=== PATIENT | female | born 1955 | race African-American/Black ===

== ENCOUNTER 2018-03-19 08:39 | Inpatient (IN) | payer OTHER ==
[2018-03-19] VITALS (8 sets, daily range): BP systolic 160–185; BP diastolic 70–87; PULSE 89–108; RESP 18–20; Ht 167.6 cm; Wt 101.0 kg
[~2018-03-19] VITALS: Ht 167.6 cm; Wt 101.0 kg
[~2018-03-19 08:39] MED LIST: BENA20TA4 PO; IBUP-1982 PO; MTF1000T PO; REGULAR INSULIN SC
[2018-03-19] MEDS ORDERED: HYDROCODONE/APAP (5/325) TAB PO ONE (09:30)
--- NOTE | 2018-03-19 10:44 | ERD ---
ER Documentation Chief Complaint Chief Complaint s/p [facility] fall has left arm pain HPI Patient is a 62-year-old female with past medical history of hypertension, hyperlipidemia, Type DM II presents to the ER for concerns of left arm pain times 1 day. Patient states she tripped yesterday at home near her fireplace. Patient denies any dizziness or lightheadedness prior to fall injury Patient reports falling onto her left shoulder pain. Patient denies any headache or head injuries. Patient denies any chest pain or shortness of breath.. T states she is unable to bend her left arm secondary to pain. Patient has normal range of m otion of all digits. Patient is left-hand dominant. Patient denies any fractures or dislocations in the past. ROS All systems reviewed and are negative except as per history of present illness. Medications Home Meds Reported Medications Aspirin* (Aspirin* EC) 81 Mg Tablet.dr, 81 MG PO DAILY, TAB 03/19/18 Insulin Glargine,Hum.rec.anlog (Basaglar Kwikpen U-100) 100 Unit/1 Ml Insuln.pen, 15 UNIT SC QAM, EA 03/19/18 Metformin* (Glucophage*) 1,000 Mg Tablet, 1000 MG PO BID, #60 TAB 03/19/18 Benazepril Hcl* (Benazepril Hcl*) 20 Mg Tablet, 20 MG PO BID, TAB 11/06/13 Discontinued Reported Medications [Regular Insulin] No Conflict Check, SC AC MEALS 11/06/13 Metformin* (Glucophage*) 1,000 Mg Tablet, 1000 MG PO BID, TAB 11/06/13 Ibuprofen* (Ibuprofen*) 200 Mg Capsule, 600 MG PO BID PRN for PAIN, CAP 11/06/13 Allergies Allergies: Coded Allergies: No Known Allergy (Unverified , 11/06/13) PMhx/Soc History of Surgery: No Anesthesia Reaction: No Hx Neurological Disorder: No Hx Respiratory Disorders: No Hx Cardiac Disorders: Yes (HTN) Hx Psychiatric Problems: No Hx Miscellaneous Medical Probl: Yes (HIGH CHOLESTEROL) Hx Alcohol Use: No Hx Substance Use: No Hx Tobacco Use: No Smoking Status: Never smoker FmHx Family History: No diabetes Physical Exam Vitals Vital Signs Date Temp Pulse Resp B/P (MAP) Pulse Ox O2 O2 Flow FiO2 Time Delivery Rate 03/19/18 97.2 99 18 158/81 100 Room Air 12:21 (106) 03/19/18 98.4 110 18 160/80 99 08:41 (106) Physical Exam GENERAL: Well-developed, well-nourished female. Appears in no acute distress. Speaking in full sentences. HEAD: Normocephalic, atraumatic. EYES: Pupils are equally reactive bilaterally. EOMs grossly intact. No conjunctival erythema. ENT: Moist mucous membranes. No uvula deviation. No kissing tonsils. NECK: Supple. No meningismus. Normal range of motion of the neck. LUNG: Clear to auscultation bilaterally. No rhonchi, wheezing, rales or coarse breath sounds. HEART: Regular rate and rhythm. No murmurs, rubs or gallops. EXTREMITIES: Equal pulses bilaterally. No peripheral clubbing, cyanosis or edema. No unilateral leg swelling. NEUROLOGIC: Alert and oriented. Moving all four extremities without any difficulty. Normal speech. Steady gait. SKIN: Normal color. Warm and dry. No rashes or lesions. LUE: Unable to lift left shoulder or bend elbow secondary to pain. 2+ radial pulses. Sensation intact to light touch. Neurovascularly intact. (Able to give thumbs up, make an ok sign, cross digits 2 and 3, thumb to pinky opposition. 2+ RP.) No snuffbox tenderness. Result Diagram: 03/19/18 1100 03/19/18 1100 Results 24 hrs Laboratory Tests Test 03/19/18 11:00 White Blood Count 12.2 10^3/ul Red Blood Count 4.85 10^6/ul Hemoglobin 12.5 g/dl Hematocrit 39.8 % Mean Corpuscular Volume 82.1 fl Mean Corpuscular Hemoglobin 25.8 pg Mean Corpuscular Hemoglobin Concent 31.4 g/dl Red Cell Distribution Width 13.0 % Platelet Count 346 10^3/UL Mean Platelet Volume 10.4 fl Immature Granulocytes % 0.600 % Neutrophils % 71.1 % Lymphocytes % 21.9 % Monocytes % 6.1 % Eosinophils % 0.0 % Basophils % 0.3 % Nucleated Red Blood Cells % 0.0 /100WBC Immature Granulocytes # 0.070 10^3/ul Neutrophils # 8.7 10^3/ul Lymphocytes # 2.7 10^3/ul Monocytes # 0.7 10^3/ul Eosinophils # 0.0 10^3/ul Basophils # 0.0 10^3/ul Nucleated Red Blood Cells # 0.0 10^3/ul Prothrombin Time 13.2 Sec Prothrombin Time Ratio 1.0 INR International Normalized Ratio 0.99 Activated Partial Thromboplast Time 26.4 Sec Sodium Level 142 mmol/L Potassium Level 4.3 mmol/L Chloride Level 104 mmol/L Carbon Dioxide Level 25 mmol/L Anion Gap 13 Blood Urea Nitrogen 17 mg/dl Creatinine 0.64 mg/dl Est Glomerular Filtrat Rate mL/min > 60 mL/min Glucose Level 374 mg/dl Calcium Level 10.1 mg/dl Troponin I < 0.012 ng/ml Current Medications Medications Dose Sig/Elias Start Time Status Last (Trade) Ordered Route PRN Stop Time Admin Dose Reason Admin 1 tab ONCE ONCE 03/19/18 DC 03/19/18 Acetaminophen PO 09:30 09:15 / 03/19/18 09:31 Hydrocodone Bitart ([place] (5/325)) Morphine 4 mg ONCE STAT 03/19/18 DC 03/19/18 Sulfate IV 10:46 10:58 (morphine) 03/19/18 10:47 Ondansetron 4 mg ONCE STAT 03/19/18 DC 03/19/18 HCl (Zofran IV 10:46 10:58 Inj) 03/19/18 10:47 Sodium 1,000 ml @ Q1H ONCE 03/19/18 DC 03/19/18 Chloride 1,000 mls/hr IV 12:00 12:09 03/19/18 12:59 1 mg ONCE STAT 03/19/18 DC 03/19/18 Hydromorphone IV 12:01 12:08 HCl 03/19/18 12:02 (Dilaudid) Ondansetron 4 mg BRIDGE ORDER 03/19/18 HCl (Zofran PRN IV 13:30 Inj) vomiting 03/20/18 13:29 650 mg ER BRIDGE 03/19/18 Acetaminophen PRN PO pain 13:30 (Tylenol 03/20/18 13:29 Tab) Procedures/MDM ED COURSE: The patient was stable throughout ED course. I kept the patient and/or family informed of laboratory and diagnostic imaging results throughout the ED course. EKG: Read by Dr. Lin attending physician. EKG shows sinus tachycardia at 119 bpm. Possible left atrial enlargement. No STEMI DIAGNOSTIC IMAGING: Read by radiologist. Patient: STRONG,GEORGIANN : 1955 Age: 62 Sex: F MR #: [id number] DOS: 03/19/1806 Ordering MD: DAWSON LAGUNA PA-C Location: [facility] Room/Bed: PROCEDURE: XR left shoulder. CLINICAL INDICATION: L arm pain s/p fall TECHNIQUE: AP, Internal and external rotation views of the left shoulder were performed. COMPARISON: None FINDINGS: There is anterior displacement of the humeral head relative to the glenoid fossa. There is a comminuted fracture of the proximal humerus at the level of the surgical neck with foreshortening and significant anteromedial displacement of the distal fragment. Visualized lung and ribs are unremarkable. IMPRESSION: 1. Anterior dislocation of the left shoulder. 2. Comminuted fracture of the proximal humerus at the level of surgical neck with foreshortening and significant anteromedial displacement of the distal fragment. RPTAT: AA Physician Austin Date Time Electronically viewed and signed by Physician Austin on 03/19/2018 10:37 rV/ CC: DAWSON LAGUNA PA-C [id number] PROCEDURES: SPLINT APPLICATION: The patient was verbally consented at bedside prior to splint application. Patient was explained the risks, benefits and alternatives to this procedure. The patient was neurovascularly intact prior to and status post application of the splint. The patient tolerated the procedure well with no complications. Splint type: Shoulder sling Extremity: Left Indication: Shoulder dislocation and humerus fracture MEDICATIONS GIVEN: [place], morphine Patient tolerated medication well with no adverse reactions. Patient reported improvement in pain. This is a 62-year-old female who presents the ER for concerns of L shoulder pain after a fall injury yesterday. Patient denies dizziness or lightheadedness pr ior to fall. Vital signs were reviewed. Patient is afebrile. Patient is not hypoxic. Left shoulder series showed 1. Anterior dislocation of the left shoulder. 2. Comminuted fracture of the proximal humerus at the level of surgical neck with foreshortening and significant anteromedial displacement of the distal fragment. Left humerus series showed 1. Acute comminuted fracture of the surgical neck and proximal shaft of the left humerus with marked anterior displacement. 2. Otherwise unremarkable images of the left humerus. Case is discussed with your physician Dr. Tsai. Patient will need to be admitted for further management of her symptoms and possible surgery. Dr. Tsai will assist with admission and consulting plasma specialist. Dr. Tsai placed pre-op orders. Results pending. Departure Diagnosis: Primary Impression: Anterior shoulder dislocation Encounter type: initial encounter Laterality: left Qualified Codes: S43.015A - Anterior dislocation of left humerus, initial encounter Additional Impression: Humerus fracture Encounter type: initial encounter Humerus Location: shaft Fracture type: closed Fracture morphology: unspecified fracture morphology Laterality: left Qualified Codes: S42.302A - Unspecified fracture of shaft of humerus, left arm, initial encounter for closed fracture DAWSON LAGUNA PA-C Mar 19, 2018 10:44
[2018-03-19] MEDS ORDERED: morphine 4 MG/ML VIAL IV STA (10:46)
[2018-03-19] MEDS ORDERED: ONDANSETRON 4 MG INJ IV STA (10:46)
[2018-03-19] MEDS ORDERED: SOD CHLORIDE 0.9% 1,000 ML IV ONE (12:00)
[2018-03-19] MEDS ORDERED: HYDROmorphONE 2 MG/ML SYG IV STA (12:01)
[2018-03-19] MEDS ORDERED: INSU100I33 SC (13:19)
[2018-03-19] MEDS ORDERED: MTF1000T PO (13:19)
[2018-03-19] MEDS ORDERED: ASPI-817 PO (13:20)
[2018-03-19] MEDS ORDERED: ONDANSETRON 4 MG INJ IV PRN (13:30)
[2018-03-19] MEDS ORDERED: ACETAMINOPHEN 325 MG TAB PO PRN (13:30)
--- NOTE | 2018-03-19 13:39 | CONS ---
Date/Time of Note Date/Time of Note DATE: 03/19/18 TIME: 13:36 Assessment/Plan Assessment/Plan Hospital Course This is a 62-year-old [id number] female with left proximal humerus fracture. It is a 2 part fracture involving the surgical neck. However there is a nondisplaced fracture is going to the greater tuberosity as well as to the superior articular surface of the humeral head. I discussed the options with the patient including nonoperative treatment versus operative treatment. Given the displacement I did recommend operative fixation to the patient. I reviewed the benefits and risks with the patient which include but not limited to convocation anesthesia, cardiopulmonary complications, nonunion, malunion, failure of hardware, avascular necrosis, need for revision surgery, neurovascular injury, infection, bleeding, arthritis. She understood these and wished to proceed with surgery. Plan: Patient will require preoperative clearance. NPO Nonweightbearing left upper extremity. Continue sling Plan for surgery this evening. Result Diagram: 03/19/18 1100 03/19/18 1100 Results 24hrs Laboratory Tests Test 03/19/18 11:00 White Blood Count 12.2 H Red Blood Count 4.85 Hemoglobin 12.5 Hematocrit 39.8 Mean Corpuscular Volume 82.1 Mean Corpuscular Hemoglobin 25.8 L Mean Corpuscular Hemoglobin Concent 31.4 L Red Cell Distribution Width 13.0 Platelet Count 346 Mean Platelet Volume 10.4 Immature Granulocytes % 0.600 H Neutrophils % 71.1 Lymphocytes % 21.9 Monocytes % 6.1 Eosinophils % 0.0 Basophils % 0.3 Nucleated Red Blood Cells % 0.0 Immature Granulocytes # 0.070 H Neutrophils # 8.7 H Lymphocytes # 2.7 Monocytes # 0.7 Eosinophils # 0.0 Basophils # 0.0 Nucleated Red Blood Cells # 0.0 Prothrombin Time 13.2 Prothrombin Time Ratio 1.0 INR International Normalized Ratio 0.99 Activated Partial Thromboplast Time 26.4 Sodium Level 142 Potassium Level 4.3 Chloride Level 104 Carbon Dioxide Level 25 Anion Gap 13 Blood Urea Nitrogen 17 Creatinine 0.64 Est Glomerular Filtrat Rate mL/min > 60 Glucose Level 374 H Calcium Level 10.1 Troponin I < 0.012 Consultation Date/Type/Reason Admit Date/Time Date of Consultation: Mar 19, 2018 Reason for Consultation Left proximal humerus fracture Hx of Present Illness This is a 62-year-old [id number] obese female who presents to the emergency department 1 day after a ground-level fall at home. She sustained a left proximal humerus fracture. Orthopedics was consulted at that time. Patient denies any numbness and tingling. States she only has pain in her left shoulder. Denies any previous injury to this shoulder. She currently does not work and is on disability for her arthritis and diabetes. Patient denies fever, chills, shortness of breath, chest pain, nausea/vomiting, constipation, diarrhea, numbness, and tingling. Past Medical History Diabetes hypertension osteoarthritis Medications Current Medications Ondansetron HCl (Zofran Inj) 4 mg BRIDGE ORDER PRN IV vomiting; Start 03/19/18 at 13:30; Stop 03/20/18 at 13:29 Acetaminophen (Tylenol Tab) 650 mg ER BRIDGE PRN PO pain; Start 03/19/18 at 13:30; Stop 03/20/18 at 13:29 Allergies: Coded Allergies: No Known Allergy (Unverified , 11/06/13) Family History Significant Family History: no pertinent family hx Social History Alcohol Use: none Smoking Status: Never smoker Drug Use: none Exam/Review of Systems Vital Signs Vitals Vital Signs Date Temp Pulse Resp B/P (MAP) Pulse Ox O2 O2 Flow FiO2 Time Delivery Rate 03/19/18 97.2 99 18 158/81 100 Room Air 12:21 (106) Exam General: Awake, alert, in no acute distress, pleasant and cooperative Heart: regular rhythm Lungs: breathing comfortably, no tachypnea or dyspnea MUSCULOSKELETAL: Left upper extremity: Skin is intact. No ecchymosis. There is swelling of the proximal humerus. Tenderness to palpation along the proximal humerus. Sensation intact to light touch in a median, ulnar, radial, and axillary distribution. Motor is intact in a median, ulnar, radial, anterior interosseous, and posterior interosseous nerve distribution. Radial and ulnar artery are +2. Wrist extension and flexion are intact. Compartments are soft. Medications Medications Current Medications Ondansetron HCl (Zofran Inj) 4 mg BRIDGE ORDER PRN IV vomiting; Start 03/19/18 at 13:30; Stop 03/20/18 at 13:29 Acetaminophen (Tylenol Tab) 650 mg ER BRIDGE PRN PO pain; Start 03/19/18 at 13:30; Stop 1/24/19 at 13:29 Imaging Imaging 2 views left shoulder and 2 view left humerus obtained in the emergency department. Demonstrate comminuted fracture of the surgical neck and proximal humeral shaft. Significant displacement with no cortical contact. CT scan of left shoulder personally reviewed. Demonstrate comminuted fracture of the surgical neck and proximal humerus. There is extension into the greater tuberosity which is nondisplaced. There is also nondisplaced fracture line going to superior articular surface of the humeral head. DEISY ELIZALDE MD Mar 19, 2018 13:39
--- NOTE | 2018-03-19 14:19 | QN ---
Documentation Comment The patient will need admission to the hospital given the fracture of the left humerus. Dr. Saxena from orthopedic surgery has seen the patient and will operate tonight. I spoke with Dr. Harden as the patient has [facility] for admission to a medical surgical bed. The patient will need medical clearance prior to surgery. SOURAV COLLIER MD Mar 19, 2018 14:19
[2018-03-19] MEDS ORDERED: INSULIN LISPRO 100 UNIT/ML VIAL SC ONE (14:30)
--- NOTE | 2018-03-19 14:54 | HP ---
LISA MONTANEZ 03/19/18 1454: Date/Time of Note Date/Time of Note DATE: 03/19/18 TIME: 14:54 Assessment/Plan VTE Prophylaxis SCD applied (from Nsg): Yes Pharmacological prophylaxis: NA/contraindicated Pharm contraindication: surgical contra Lines/Catheters IV Catheter Type (from Nrsg): Saline Lock Assessment/Plan Hospital Course 1. Left arm dislocation with surgical neck humerus fracture. SIRS, wbc 12 2. S/p two ground fall 3. Hypertension 4. Hyperlipidemia, 5. Type DM II 6. hx of diverticulosis 7. Obesity 8. chronic back pain and osteoarthritis both knees, pt is taking Tylenol # 4 BID for more than a month. Has a opiate responce history. Normo make her sick, she prefers Vicodin 9. Ventral hernia Assessment/Plan -DVT prophylaxis SCD -GI prophylaxis Protonix -pain control -hypoglycemic control -restart pt home meds after surgery -Dr Mccallum for preop clearance, called Result Diagram: 03/19/18 1100 03/19/18 1100 Results 24hrs Laboratory Tests Test 03/19/18 11:00 03/19/18 14:32 White Blood Count 12.2 H Red Blood Count 4.85 Hemoglobin 12.5 Hematocrit 39.8 Mean Corpuscular Volume 82.1 Mean Corpuscular Hemoglobin 25.8 L Mean Corpuscular Hemoglobin Concent 31.4 L Red Cell Distribution Width 13.0 Platelet Count 346 Mean Platelet Volume 10.4 Immature Granulocytes % 0.600 H Neutrophils % 71.1 Lymphocytes % 21.9 Monocytes % 6.1 Eosinophils % 0.0 Basophils % 0.3 Nucleated Red Blood Cells % 0.0 Immature Granulocytes # 0.070 H Neutrophils # 8.7 H Lymphocytes # 2.7 Monocytes # 0.7 Eosinophils # 0.0 Basophils # 0.0 Nucleated Red Blood Cells # 0.0 Prothrombin Time 13.2 Prothrombin Time Ratio 1.0 INR International Normalized Ratio 0.99 Activated Partial Thromboplast Time 26.4 Sodium Level 142 Potassium Level 4.3 Chloride Level 104 Carbon Dioxide Level 25 Anion Gap 13 Blood Urea Nitrogen 17 Creatinine 0.64 Est Glomerular Filtrat Rate mL/min > 60 Glucose Level 374 H Calcium Level 10.1 Troponin I < 0.012 Bedside Glucose 320 H HPI/ROS Admit Date/Time Admit Date/Time Hx of Present Illness Patient is a 62-year-old female with past medical history of hypertension, hyperlipidemia, Type DM II, diverticulosis presents to the ER for concerns of left arm pain times 1 day. Patient states she tripped yesterday at home near her fireplace twice. Patient denies any dizziness or lightheadedness prior to fall injury. Patient reports falling onto her left shoulder.. Patient denies any headache or head injuries. Patient denies any chest pain or shortness of breath. Pt states that she takes Tylenol with codeine BID, doses are unclear. she is under pain management for chronic back pain and bilateral osteoarthritis. Patient has normal range of motion of all digits. Patient is left-hand dominant. Patient denies any fractures or dislocations in the past. ROS Cardiovascular: chest pain, edema; No no complaints, No lightheadedness, No orthopenea, No palpitations, No paroxysmal nocturnal dyspnea, No other Musculoskeletal: back pain, bone/joint pain, restricted range of motion (left shoulder) PMH/Family/Social Past Medical History Medications Current Medications Ondansetron HCl (Zofran Inj) 4 mg BRIDGE ORDER PRN IV vomiting; Start 03/19/18 at 13:30; Stop 03/20/18 at 13:29 Acetaminophen (Tylenol Tab) 650 mg ER BRIDGE PRN PO pain; Start 03/19/18 at 13:30; Stop 03/20/18 at 13:29 Coded Allergies: No Known Allergy (Unverified , 11/06/13) Past Surgical History Past Surgical Hx: no surgical history Family History Significant Family History: no pertinent family hx Social History Alcohol Use: none Smoking Status: Never smoker Drug Use: none Exam/Review of Systems Vital Signs Vitals Vital Signs Date Temp Pulse Resp B/P (MAP) Pulse Ox O2 O2 Flow FiO2 Time Delivery Rate 03/19/18 97.1 88 22 156/83 98 Room Air 14:34 (107) Exam Constitutional: alert, oriented Neck: supple Respiratory: clear to auscultation Cardiovascular: regular rate and rhythm Gastrointestinal: soft, other (ventral hernia) Musculoskeletal: muscle weakness (left arm, full sensitivity) CON CHRISTIANSON MD 03/20/18 0648: Assessment/Plan Assessment/Plan Assessment/Plan 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
--- NOTE | 2018-03-19 16:23 | RADRPT ---
Echocardiogram Report Patient Name: RAFFI SHARMA Gender: Female Date: 1955 Study Date: 19-Mar-2018 Patroller: Naveed Cannon [facility] Location: 409-A Ref. Physician: CON CHRISTIANSON Quality: Adequate Procedures: Transthoracic echocardiogram with complete 2D, M-Mode, and doppler examination. Indications: Pre-op. 2D/M Mode Doppler Measurement Value Normal Ranges Measurement Value Normal Ranges LVIDd 2D 3.4 3.5 - 5.6 cm AV Peak Carlos 1.4 m/sec LVIDs 2D 2.2 2.1 - 4.1 cm AV Peak PG 8.0 mmHg LVPWd 2D 1.5 0.6 - 1.1 cm LVOT Peak Carlos 1.0 m/sec IVSd 2D 1.6 0.6 - 1.1 cm LVOT Peak PG 4.0 mmHg AoR Diam 2D 2.7 2.0 - 3.7 cm MV E Peak Carlos 0.9 m/sec LA/Ao 2D 1 0 - 1 MV A Peak Carlos 1.4 m/sec LA Dimen 2D 3.7 2.3 - 4.0 cm MV E/A 0.6 MV Decel Time 194 msec Lat E` Carlos 0.1 m/sec Lateral E/E` 11.3 Med E` Carlos 0.1 m/sec MV E/A 0.6 RA Pressure 3.0 Findings Left Ventricle: Normal left ventricular systolic function. Normal left ventricular cavity size. Moderate concentric left ventricular hypertrophy. Ejection fraction is visually estimated at 65 %. Tissue Doppler/Mitral Doppler indices are consistent with impaired relaxation (Stage I diastolic dysfunction). Right Ventricle: Normal right ventricular size. Normal right ventricular systolic function. Left Atrium: The left atrium is normal in size. Right Atrium: The right atrium is normal in size. Mitral Valve: Mild mitral leaflet calcification. Mild mitral annular calcification. Trace mitral regurgitation. Aortic Valve: Aortic valve not well visualized. Aortic cusps appear mildly calcified. Trace aortic valve regurgitation. Tricuspid Valve: Normal appearance of the tricuspid valve. Unable to obtain RVSP due to minimal presence of tricuspid regurgitation. There is trace tricuspid regurgitation. Pulmonic Valve: Pulmonic valve not well visualized. There is trace pulmonic regurgitation. Pericardium: Normal pericardium with no significant pericardial effusion. Aorta: Normal aortic root. IVC: Normal size and normal respiratory collapse consistent with normal right atrial pressure. Conclusions Normal left ventricular systolic function. Normal left ventricular cavity size. Moderate concentric left ventricular hypertrophy. Ejection fraction is visually estimated at 65 %. Tissue Doppler/Mitral Doppler indices are consistent with impaired relaxation (Stage I diastolic dysfunction). Mild mitral leaflet calcification. Mild mitral annular calcification. Trace mitral regurgitation. Aortic valve not well visualized but no significant gradient noted across the valvular apparatus. Aortic cusps appear mildly calcified. Trace aortic valve regurgitation. Normal appearance of the tricuspid valve. Unable to obtain RVSP due to minimal presence of tricuspid regurgitation. There is trace tricuspid regurgitation. Pulmonic valve not well visualized. There is trace pulmonic regurgitation. Electronically Signed By: Jose Mccallum 19-Mar-2018 16:22:43 -0800 Patient Name: RAFFI SHARMA Study Date: 19-Mar-2018 [id number]
[2018-03-19] MEDS ORDERED: traMADol 50 MG TAB PO PRN (16:30)
[2018-03-19] MEDS ORDERED: SOD CHLORIDE 0.9% 1,000 ML IV SCH (16:30)
--- NOTE | 2018-03-19 17:18 | CONS ---
DATE OF ADMISSION: 03/19/2018 DATE OF CONSULTATION: 03/19/2018 TYPE OF CONSULTATION: Cardiology. REASON FOR CONSULTATION: Preoperative evaluation, also status post fall, rule cardiac etiology, rule out cardiac arrhythmia. REQUESTING PHYSICIAN: Vannessa Harden MD HISTORY OF PRESENT ILLNESS: Ms. Protcor is a very pleasant 62-year-old female with history of hyperte nsion, dyslipidemia, diabetes mellitus, who presented status post a fall with left arm pain. Per pat ient, she states that she was walking and tripped and fell. She does not remember the events surroun ding her trip and fall, but denied prodrome of dizziness, palpitation, chest pain, shortness of breat h. Per daughter, the patient had tripped and fell near her fireplace and then later on, the patient had a fall down, unclear if she tripped and fallen. Per daughter, she thought maybe something else p ossibly happened and then she has fell again shortly after that the same day. Upon arrival, temperat ure 98.4, blood pressure 160/80, pulse 110, respiratory rate 18, satting 99%. The patient's labs wer e notable for white blood cell count 12.2, hemoglobin 12.5, platelet count 346, sodium 142, potassium 4.3, creatinine of 0.6, BUN 17. Troponin negative. Glucose of 320. INR 0.99. The patient underwe nt a shoulder x-ray revealing anterior dislocation of left shoulder, comminuted fracture of proximal humerus. Humeral x-ray revealing acute coronoid fracture of surgical neck and proximal shaft left hu merus with anterior displacement. A chest x-ray revealed evidence for acute coronary abnormalities a nd upper extremity CT that revealed acute comminuted significantly displaced apex, anterior angulated proximal humeral fracture as above. Note is made of fracture extension involving the greater tubero sity in the superior margin of the humeral head of articular surface. The patient does not have elec trocardiogram for my review at this time. The patient has been admitted to the floor and since admit to floor, denies chest pain, shortness of breath. PAST MEDICAL HISTORY: As above in HPI. MEDICATIONS PRIOR TO ADMIT: 1. Claritin. 2. Soma. 3. Gabapentin. 4. Tylenol. 5. Clonidine 0.1 p.o. b.i.d. 6. Benazepril 10 mg b.i.d. 7. Metformin. 8. Simvastatin 10 mg at bedtime. 9. Procardia 60 mg daily. MEDICATIONS CURRENTLY IN HOSPITAL: 1. Insulin. 2. Tramadol. 3. Morphine. 4. Hydralazine. ALLERGIES: NO KNOWN DRUG ALLERGIES. SOCIAL HISTORY: No current tobacco, EtOH or illicit drug use. FAMILY HISTORY: No history of sudden cardiac or early CAD. REVIEW OF SYSTEMS: As above in HPI. CONSTITUTIONAL: No fevers, chills. PULMONARY: Shortness of breath. CARDIOVASCULAR: No current chest pain, syncope. GASTROINTESTINAL: No vomiting. GENITOURINARY: No hematuria. MUSCULOSKELETAL: Degenerative joint disease, back pain. PSYCHIATRIC: No documented psych history. NEUROLOGIC: Status post syncope. ENDOCRINE: Diabetes mellitus. PHYSICAL EXAMINATION: VITAL SIGNS: Temperature 98.3, blood pressure most recently 184/86, pulse 95, respiratory rate 18, s atting 99%. GENERAL: The patient is alert, awake, complaining of left arm pain. NECK: JVP approximately is 8 to 9 cm water. CHEST: Fair air movement throughout. HEART: Regular rate and rhythm. Normal S1, S2, I/ systolic murmur, nondisplaced PMI. ABDOMEN: Positive bowel sounds, soft. EXTREMITIES: No significant pitting edema, 1+ pulses bilaterally posterior tibial. Some excoriation s on the legs. LABORATORY DATA: As above in HPI. No further labs for my review at this time other than a glucose o f 320. IMAGING STUDIES: As above in HPI. No further imaging studies for review at this time. IMPRESSION: 1. Preoperative evaluation prior to upper extremity surgery for comminuted humeral fracture. 2. Status post fall, rule out cardiac etiology, rule out cardiac arrhythmia. Per patient she states she tripped and fell. 3. Hypertension, uncontrolled. 4. Dyslipidemia. 5. Diabetes mellitus. 6. Leukocytosis. 7. Uncontrolled blood sugars. RECOMMENDATIONS: 1. At this time given the patient's unclear history of sustained a fall, we would move the patient t o telemetry monitoring to rule out any possible rhythm causes to the fall. 2. We would complete the patient's rule out for myocardial infarction to ensure the patient's coughi ng symptoms and fall were not due to an acute coronary syndrome such as acute myocardial infarction. 3. Check a baseline EKG now and repeat EKG in the morning to assess for any significant changes ther eafter. 4. Check a fasting lipid panel for general risk stratification and adjust the patient's baseline sta tin therapy as necessary. 5. Resume the patient's baseline clonidine, benazepril and possibly Procardia following blood pressu re closely. 6. Pain control. 7. Further recommendations pertaining to the surgical candidate of this patient will be made after c ompletion of above studies including serial troponin analysis, EKG analysis and followup on a 2D echo . Thank you for allowing me to take part in the care of this patient. I will continue to follow her al maria luz very closely with you with further recommendations will be made as the patient progresses through her inpatient hospital clinical course. Dictated By: ALTON PALAFOX/TARAN Conf#: [id number] DID#: [id number] CC: VANNESSA HARDEN;*EndCC*
[2018-03-19] MEDS: morphine 4 MG/ML VIAL IV PRN ×2 (17:40→23:39)
[2018-03-19] MEDS: INSULIN ASPART [NOVOLOG] 3 ML PEN SC SCH (17:46)
[2018-03-19] MEDS ORDERED: ZOC10 PO (18:34)
[2018-03-19] MEDS ORDERED: LORA10TA3 PO (18:34)
[2018-03-19] MEDS ORDERED: NIFE60TA18 PO (18:34)
[2018-03-19] MEDS ORDERED: CLON-379 PO (18:34)
--- NOTE | 2018-03-19 18:37 | NUR ---
Received nursing report from charlotte Mendez RN, who initially took report from RUPA Terrell, on .
--- NOTE | 2018-03-19 19:00 | NUR ---
Report given to Charge nurse Smith for continuation of care. Patient was given Clonidine po prn for sbp in the 180s. Patient was seen by Dr Saxena surgery consult and POC is possible surgery tomorrow if cleared by cardiology. Patient seen by Dr Mccallum and he placed order for transfer to tele and workup to be done. Daughter Deja was updated regarding the POC and change in room. Deja called from home and gave an updated list of the patients home medication and med rec updated in the chart. Patient was given morphine IV prn for pain and verbalized a decrease in pain prior to leaving the unit.Orders received to place patient on NPO after 8am on 03/20/18 for possible surgery. All patient belongings were given to the patient prior to leaving the unit. Patient escorted by charge nurse Smith and transporter, stable at that time.
--- NOTE | 2018-03-19 19:08 | NUR ---
Received pt from [facility]. Accompanied by RN Sarah Jackson and transportation via bed. Pt has very steady gait. No complaints other than mild pain in left arm. Not time for PRN morphine yet. Call light in reach. Oriented to room and unit. Bed locked in lowest position with 2 side rails raised. Non skid socks on. Left arm in sling. Sinus tach on tele monitor with HR 120's when ambulating. Sinus with HR in 90's when in bed resting. Pt stable. Denies SOB. Pleasant. Cooperative. AAOX4. IV intact.
[2018-03-19] MEDS: BENAZEPRIL 20 MG TAB PO SCH (20:21)
[2018-03-19] MEDS: hydrALAzine 20 MG INJ IV PRN (20:22)
[2018-03-20] VITALS (11 sets, daily range): BP systolic 122–175; BP diastolic 64–81; PULSE 90–116; RESP 19–20
[2018-03-20] MEDS: hydrALAzine 20 MG INJ IV PRN ×2 (00:02→15:59)
--- NOTE | 2018-03-20 00:08 | NUR ---
RN NOTES: WILL RECHECK BLOOD SUGAR ONCE INSULIN PEN IS DELIVERED BY PHARMACY
[2018-03-20] MEDS: ACCU-CHEK XX SCH (01:23)
[2018-03-20] MEDS: INSULIN ASPART [NOVOLOG] 3 ML PEN SC SCH ×4 (01:23→17:36)
[2018-03-20] MEDS: PANTOPRAZOLE 40 MG INJ IV SCH (06:23)
--- NOTE | 2018-03-20 07:34 | NUR ---
EOSS: PATIENT WITH HBP, CURRENTLY CONTROLLED WITH SBP OF 120'S MMHG. FSBS IS ON THE HIGH SIDE , INSULIN GIVEN, WILL REFER TO STRETCHER HELPER. ALL MEDS GIVEN. KEPT COMFORTABLE.
[2018-03-20] MEDS: BENAZEPRIL 20 MG TAB PO SCH ×2 (08:25→20:29)
[2018-03-20] MEDS: DEXTROSE 5%-0.45% NACL 1,000 ML IV SCH (08:25)
[2018-03-20] MEDS: morphine 4 MG/ML VIAL IV PRN (08:29)
--- NOTE | 2018-03-20 09:17 | NUR ---
Talked to Dr Saxena regarding pt's surgery schedule. Per pt will not have the operation today, and can have a diet for today, Pt is scheduled for surgery on Saturday and will be NPO Saturday after midnight. Communicated the information to the pt, will talk to the pt later. will monitor.
--- NOTE | 2018-03-20 09:22 | NUR ---
Called [facility] to confirm pt's tube feeding and the rate, Per nurse in the [facility] pt was on Glucerna 1.5 70cc/hr for 20 hrs, Called and talked to [employer]oc[employer] Detailer at [facility], for substitute pt will be on Diabetic Source 70cc/hr for 24hr. will enter the order Addendum: 03/20/18 at 0934 by RACHEL LOPEZ RN amend the note wrong pt.
--- NOTE | 2018-03-20 10:18 | PN ---
Date/Time of Note Date/Time of Note DATE: 03/20/18 TIME: 10:15 Assessment/Plan VTE Prophylaxis Risk score (from Ns)>0 risk: 3 SCD applied (from Ns): Yes Pharmacological prophylaxis: NA/contraindicated Pharm contraindication: surgical contra Lines/Catheters IV Catheter Type (from Nrs): Saline Lock Urinary Cath still in place: No Assessment/Plan Hospital Course 1. Left arm dislocation with surgical neck humerus fracture. SIRS, wbc 12 2. S/p two ground falls 3. Hypertension 4. Hyperlipidemia, 5. Type DM II 6. hx of diverticulosis 7. Obesity 8. chronic back pain and osteoarthritis both knees, pt is taking Tylenol # 4 BID for more than a month. Pt has opiates intake history. [place] make her sick, she prefers Vicodin 7.5 9. Ventral hernia Assessment/Plan -surgery postponed until Sat. -DVT prophylaxis SCD -GI prophylaxis Protonix -improve pain control -hypoglycemic control, start 10 units daily -start Tradjenta -restart pt home meds after surgery -Dr Mccallum for preop clearance, called Dr Saxena, ortho. surgen Result Diagram: 03/19/18 1100 03/20/18 0829 Results 24hrs Laboratory Tests Test 03/19/18 11:00 03/19/18 14:32 03/19/18 17:44 03/19/18 18:57 White Blood Count 12.2 H Red Blood Count 4.85 Hemoglobin 12.5 Hematocrit 39.8 Mean Corpuscular 82.1 Volume Mean Corpuscular 25.8 L Hemoglobin Mean Corpuscular 31.4 L Hemoglobin Concent Red Cell 13.0 Distribution Width Platelet Count 346 Mean Platelet Volume 10.4 Immature 0.600 H Granulocytes % Neutrophils % 71.1 Lymphocytes % 21.9 Monocytes % 6.1 Eosinophils % 0.0 Basophils % 0.3 Nucleated Red Blood 0.0 Cells % Immature 0.070 H Granulocytes # Neutrophils # 8.7 H Lymphocytes # 2.7 Monocytes # 0.7 Eosinophils # 0.0 Basophils # 0.0 Nucleated Red Blood 0.0 Cells # Prothrombin Time 13.2 Prothrombin Time 1.0 Ratio INR International 0.99 Normalized Ratio Activated 26.4 Partial Thromboplast Time Sodium Level 142 Potassium Level 4.3 Chloride Level 104 Carbon Dioxide Level 25 Anion Gap 13 Blood Urea Nitrogen 17 Creatinine 0.64 Est Glomerular > 60 Filtrat Rate mL/min Glucose Level 374 H Calcium Level 10.1 Troponin I < 0.012 < 0.012 Bedside Glucose 320 H 164 Test 03/19/18 23:50 03/20/18 00:36 03/20/18 01:14 03/20/18 06:26 Bedside Glucose 294 H 321 H 249 H Troponin I < 0.012 Test 03/20/18 08:29 White Blood Count Pending Red Blood Count Pending Hemoglobin Pending Hematocrit Pending Mean Corpuscular Pending Volume Mean Corpuscular Pending Hemoglobin Mean Corpuscular Pending Hemoglobin Concent Red Cell Pending Distribution Width Platelet Count Pending Mean Platelet Volume Pending Sodium Level 142 Potassium Level 4.2 Chloride Level 105 Carbon Dioxide Level 24 Anion Gap 13 Blood Urea Nitrogen 17 Creatinine 0.61 Est Glomerular > 60 Filtrat Rate mL/min Glucose Level 304 H Calcium Level 9.8 Troponin I 0.056 Subjective 24 Hr Interval Summary Free Text/Dictation uncontrolled pain in body Exam/Review of Systems Vital Signs Vitals Vital Signs Date Temp Pulse Resp B/P (MAP) Pulse Ox O2 O2 Flow FiO2 Time Delivery Rate 03/20/18 95 08:46 03/20/18 99.1 19 141/72 99 07:44 (95) 03/20/18 Room Air 00:00 Intake and Output 03/19/18 03/19/18 03/20/18 1515:00 23:00 07:00 IntakeIntake Total 500 ml 120 ml BalanceBalance 500 ml 120 ml Exam Constitutional: alert, oriented ENMT: nl external ears & nose Neck: supple Respiratory: clear to auscultation Cardiovascular: regular rate and rhythm Gastrointestinal: soft Musculoskeletal: muscle weakness (left arm and paresthesia) Medications Medications Current Medications Influenza Virus Vaccine Quadrival (Fluzone) 0.5 ml ONCE ONCE IM* ; Start 03/20/18 at 11:00; Stop 03/20/18 at 11:01 Hydralazine HCl (Apresoline) 20 mg Q6H PRN IV SBP above 160 Last administered on 03/20/18at 00:02; Admin Dose 20 MG; Start 03/19/18 at 16:30 Pantoprazole (Protonix Iv) 40 mg DAILY@06 IV Last administered on 03/20/18at 06:23; Admin Dose 40 MG; Start 03/20/18 at 06:00 Morphine Sulfate (morphine) 2 mg Q4H PRN IV SEVERE PAIN LEVEL 7-10 Last administered on 03/20/18 08:29; Admin Dose 2 MG; Start 03/19/18 at 16:30 Tramadol HCl (Ultram) 50 mg Q6H PRN PO MODERATE PAIN LEVEL 4-6 Last administered on 03/19/18 20:22; Admin Dose 50 MG; Start 03/19/18 at 16:30 Diagnostic Test (Pha) (Accu-Chek) 1 ea 02 XX ; Start 03/20/18 at 02:00 Insulin Aspart (Novolog Insulin Pen) NOVOLOG *MILD* ALGORI... Q6 SC Last administered on 03/20/18 06:30; Admin Dose 3 UNIT; Start 03/19/18 at 18:00 Clonidine (Catapres) 0.1 mg Q6H PRN PO SBP>170 Last administered on 03/20/18 01:18; Admin Dose 0.1 MG; Start 03/19/18 at 17:00 Benazepril HCl (Lotensin) 20 mg BID PO Last administered on 03/20/18 08:25; Admin Dose 20 MG; Start 03/19/18 at 21:00 Dextrose/Sodium Chloride 1,000 ml @ 50 mls/hr Q20H IV Last administered on 03/20/18 08:25; Admin Dose 50 MLS/HR; Start 03/20/18 at 08:00 LISA CATES Mar 20, 2018 10:18
[2018-03-20] MEDS ORDERED: DEXTROSE 50% 50 ML SYRINGE IV PRN ×2 (10:30)
[2018-03-20] MEDS ORDERED: GLUCOSE GEL 15 GRAM TUBE BUCCAL PRN (10:30)
[2018-03-20] MEDS ORDERED: GLUCAGON 1 MG INJ IM PRN (10:30)
[2018-03-20] MEDS ORDERED: GLUCOSE GEL 15 GRAM TUBE PO PRN ×2 (10:30)
[2018-03-20] MEDS: OXYCODONE/ACETAMINOPHEN (5/325) TAB PO PRN ×3 (10:37→20:30)
[2018-03-20] MEDS: LINAGLIPTIN 5 MG TABLET PO SCH (11:41)
[2018-03-20] MEDS ORDERED: morphine 4 MG/ML VIAL IV PRN (12:30)
--- NOTE | 2018-03-20 12:53 | CONS ---
Assessment/Plan Assessment/Plan Hospital Course (Demo Recall) IMPRESSION: 1. Preoperative evaluation prior to upper extremity surgery for comminuted humeral fracture.-neg trop x 3/NL EF by echo and no sig valve abnl. BP overall improved. OK to proceed to OR at overall moderate CV risk on current medications without further noninvasive evaluation 2. Status post fall, rule out cardiac etiology, rule out cardiac arrhythmia. Per patient she states she tripped and fell. 3. Hypertension, uncontrolled. 4. Dyslipidemia. 5. Diabetes mellitus. 6. Leukocytosis. 7. Uncontrolled blood sugars. Recc: -Tele -serial ecg's -Continue benazepril -resume baseline CCB to improve overall BP control -Pain control -pnding UE surgery Consultation Date/Type/Reason Admit Date/Time Mar 19, 2018 at 13:16 Initial Consult Date 03/19/18 Type of Consult Cardiology Reason for Consultation preop, s/p fall Requesting Provider: CON CHRISTIANSON MD Date/Time of Note DATE: 03/20/18 TIME: 12:49 Exam/Review of Systems Vital Signs Vitals Vital Signs Date Temp Pulse Resp B/P (MAP) Pulse Ox O2 O2 Flow FiO2 Time Delivery Rate 03/20/18 98.6 94 19 159/74 96 11:15 (102) 03/20/18 Room Air 00:00 Intake and Output 03/19/18 03/19/18 03/20/18 1515:00 23:00 07:00 IntakeIntake Total 500 ml 120 ml BalanceBalance 500 ml 120 ml Exam Exam Review of Systems: CONSTITUTIONAL: No fevers, chills. PULMONARY: No sob CARDIOVASCULAR: No chest pain/palpitations GASTROINTESTINAL: No nausea/vomiting. GENITOURINARY: No hematuria/dysuria. MUSCULOSKELETAL: No myagias/arthalgias. PSYCHIATRIC: The patient denies depression. NEUROLOGIC: No weakness Constitutional: alert Psych: no complaints Head: normocephalic ENMT: mucosa pink and moist Neck: supple, jvd (9 cm water) Respiratory: diminished breath sounds (at bases/B) Cardiovascular: regular rate and rhythm Gastrointestinal: soft, non-tender Musculoskeletal: muscle tone (normal) Extremities: edema (nonw), other (arm in sling) Neurological: other (No focal deficits) Labs Result Diagram: 03/20/18 1042 03/20/18 0829 Results 24hrs Laboratory Tests Test 03/19/18 14:32 03/19/18 17:44 03/19/18 18:57 03/19/18 23:50 Bedside Glucose 320 H 164 294 H Troponin I < 0.012 Test 03/20/18 00:36 03/20/18 01:14 03/20/18 06:26 03/20/18 08:29 Troponin I < 0.012 0.056 Bedside Glucose 321 H 249 H Sodium Level 142 Potassium Level 4.2 Chloride Level 105 Carbon Dioxide Level 24 Anion Gap 13 Blood Urea Nitrogen 17 Creatinine 0.61 Est Glomerular > 60 Filtrat Rate mL/min Glucose Level 304 H Calcium Level 9.8 Test 03/20/18 10:42 03/20/18 11:40 White Blood Count 11.0 H Red Blood Count 4.41 Hemoglobin 11.5 L Hematocrit 36.8 L Mean Corpuscular 83.4 Volume Mean Corpuscular 26.1 L Hemoglobin Mean Corpuscular 31.3 L Hemoglobin Concent Red Cell 13.2 Distribution Width Platelet Count 283 Mean Platelet Volume 10.2 Immature 0.400 Granulocytes % Neutrophils % 71.1 Lymphocytes % 20.3 Monocytes % 7.7 Eosinophils % 0.2 Basophils % 0.3 Nucleated Red Blood 0.0 Cells % Immature 0.040 H Granulocytes # Neutrophils # 7.8 H Lymphocytes # 2.2 Monocytes # 0.9 Eosinophils # 0.0 Basophils # 0.0 Nucleated Red Blood 0.0 Cells # Hemoglobin A1c 12.5 H Bedside Glucose 337 H ALTON DYE Mar 20, 2018 12:53
--- NOTE | 2018-03-20 18:36 | NUR ---
EOSS: Pt is stable, VS are WNL. Pain management is successful. BP is more controlled with PRN medication. Blood sugar is slightly elevated through the shift, INSIDE SALES AGENT Ynes is aware. will endorse the care to overnight caregiver nurse.
--- NOTE | 2018-03-20 19:26 | PN ---
Date/Time of Note Date/Time of Note DATE: 03/20/18 TIME: 19:24 Assessment/Plan Lines/Catheters IV Catheter Type (from Nrsg): Saline Lock Villarreal in Place (from Nrsg): No Assessment/Plan Chief Complaint/Hosp Course This is a 62-year-old [id number] female with left proximal humerus fracture. The patient did not have cardiac clearance until this morning. Per the operating room schedule surgery would likely not start until after 8 PM. Given the complexity and difficulty of this case I felt it was best to postpone the surgery until Saturday morning at 730 for start. The patient understood this and was okay with the plan. Plan: NPO Midnight 03/22/18 for surgery the morning of 03/22/18 Nonweightbearing left upper extremity. Continue sling pain control Subjective 24 Hr Interval Summary Patient doing well No acute events overnight. Patient was cleared by cardiology for surgery this morning. Pain is moderately controlled Exam/Review of Systems Vital Signs Vitals Vital Signs Date Temp Pulse Resp B/P (MAP) Pulse Ox O2 O2 Flow FiO2 Time Delivery Rate 03/20/18 101 16:42 03/20/18 98.2 19 164/75 96 15:30 (104) 03/20/18 Room Air 00:00 Intake and Output 03/19/18 03/19/18 03/20/18 1515:00 23:00 07:00 IntakeIntake Total 500 ml 120 ml BalanceBalance 500 ml 120 ml Exam Free Text/Dictation General: Awake, alert, in no acute distress, pleasant and cooperative Heart: regular rhythm Lungs: breathing comfortably, no tachypnea or dyspnea MUSCULOSKELETAL: Left upper extremity: Skin is intact. No ecchymosis. There is swelling of the proximal humerus. Tenderness to palpation along the proximal humerus. Sensation intact to light touch in a median, ulnar, radial, and axillary distribution. Motor is intact in a median, ulnar, radial, anterior interosseous, and posterior interosseous nerve distribution. Radial and ulnar artery are +2. Wrist extension and flexion are intact. Compartments are soft. Results Result Diagram: 03/20/18 1042 03/20/18 0829 DEISY ELIZALDE MD Mar 20, 2018 19:26
[2018-03-20] MEDS: INSULIN DETEMIR [LEVEMIR] (100 UNITS/ML) SYG SC SCH (20:51)
[2018-03-21] VITALS (11 sets, daily range): BP systolic 140–176; BP diastolic 70–87; PULSE 92–111; RESP 17–19
[2018-03-21] MEDS: INSULIN ASPART [NOVOLOG] 3 ML PEN SC SCH ×4 (00:03→17:16)
[2018-03-21] MEDS: ACCU-CHEK XX SCH (02:00)
[2018-03-21] MEDS: OXYCODONE/ACETAMINOPHEN (5/325) TAB PO PRN ×6 (02:07→23:59)
[2018-03-21] MEDS: PANTOPRAZOLE 40 MG INJ IV SCH (06:25)
--- NOTE | 2018-03-21 07:17 | NUR ---
EOSS: PATIENT WITH CONSTANT PAIN BUT SAID TOLERABLE WHEN GIVEN PERCOCET Q 4. STABLE GAIT. BACK RUB GIVEN, LINENS CHANGED. ALL DUE MEDS GIVEN.
[2018-03-21] MEDS: LINAGLIPTIN 5 MG TABLET PO SCH (08:19)
[2018-03-21] MEDS: BENAZEPRIL 20 MG TAB PO SCH ×2 (08:19→20:10)
[2018-03-21] MEDS: NIFEdipine (XL) 30 MG TAB PO SCH (08:19)
--- NOTE | 2018-03-21 09:58 | PN ---
LISA MONTANEZ 03/21/18 0958: Date/Time of Note Date/Time of Note DATE: 03/21/18 TIME: 09:57 Assessment/Plan VTE Prophylaxis Risk score (from Ns)>0 risk: 8 SCD applied (from [facility]): Yes Pharmacological prophylaxis: NA/contraindicated Pharm contraindication: surgical contra Lines/Catheters IV Catheter Type (from [facility]): Saline Lock Urinary Cath still in place: No Assessment/Plan Hospital Course 1. Left arm dislocation with surgical neck humerus fracture. SIRS, wbc 12 2. S/p two ground falls 3. Hypertension 4. Hyperlipidemia, 5. Type DM II 6. hx of diverticulosis 7. Obesity 8. chronic back pain and osteoarthritis both knees, pt is taking Tylenol # 4 BID for more than a month. Pt has opiates intake history. [place] make her sick, she prefers Vicodin 7.5 9. Ventral hernia Assessment/Plan -surgery postponed until Sat. -DVT prophylaxis SCD -GI prophylaxis Protonix -c/w pain control -hypoglycemic control,c/w Insulin 10 units daily -c/w Tradjenta -restart pt home meds after surgery -Dr Mccallum for preop clearance, called Dr Saxena, ortho. surgeon Result Diagram: 03/20/18 1042 03/20/18 0829 Results 24hrs Laboratory Tests Test 03/20/18 10:42 03/20/18 11:40 03/20/18 17:32 03/20/18 20:33 White Blood Count 11.0 H Red Blood Count 4.41 Hemoglobin 11.5 L Hematocrit 36.8 L Mean Corpuscular 83.4 Volume Mean Corpuscular 26.1 L Hemoglobin Mean Corpuscular 31.3 L Hemoglobin Concent Red Cell 13.2 Distribution Width Platelet Count 283 Mean Platelet Volume 10.2 Immature 0.400 Granulocytes % Neutrophils % 71.1 Lymphocytes % 20.3 Monocytes % 7.7 Eosinophils % 0.2 Basophils % 0.3 Nucleated Red Blood 0.0 Cells % Immature 0.040 H Granulocytes # Neutrophils # 7.8 H Lymphocytes # 2.2 Monocytes # 0.9 Eosinophils # 0.0 Basophils # 0.0 Nucleated Red Blood 0.0 Cells # Hemoglobin A1c 12.5 H Bedside Glucose 337 H 293 H 314 H Test 03/20/18 23:55 1/25/19 06:27 03/21/18 08:18 Bedside Glucose 334 H 217 253 H Subjective 24 Hr Interval Summary Musculoskeletal: restricted range of motion (right arm) Exam/Review of Systems Exam Vitals Vital Signs Date Temp Pulse Resp B/P (MAP) Pulse Ox O2 O2 Flow FiO2 Time Delivery Rate 03/21/18 98.5 99 19 164/71 97 07:24 (102) 03/20/18 Room Air 00:00 Intake and Output 03/20/18 03/20/18 03/21/18 1515:00 23:00 07:00 IntakeIntake Total 110 ml 600 ml 500 ml BalanceBalance 110 ml 600 ml 500 ml Constitutional: alert, oriented Respiratory: clear to auscultation, normal air movement Cardiovascular: regular rate and rhythm Gastrointestinal: soft Musculoskeletal: muscle weakness (left arm) Results Result Diagram: 03/20/18 1042 03/20/18 0829 Results 24hrs Laboratory Tests Test 03/20/18 10:42 03/20/18 11:40 03/20/18 17:32 03/20/18 20:33 White Blood Count 11.0 H Red Blood Count 4.41 Hemoglobin 11.5 L Hematocrit 36.8 L Mean Corpuscular 83.4 Volume Mean Corpuscular 26.1 L Hemoglobin Mean Corpuscular 31.3 L Hemoglobin Concent Red Cell 13.2 Distribution Width Platelet Count 283 Mean Platelet Volume 10.2 Immature 0.400 Granulocytes % Neutrophils % 71.1 Lymphocytes % 20.3 Monocytes % 7.7 Eosinophils % 0.2 Basophils % 0.3 Nucleated Red Blood 0.0 Cells % Immature 0.040 H Granulocytes # Neutrophils # 7.8 H Lymphocytes # 2.2 Monocytes # 0.9 Eosinophils # 0.0 Basophils # 0.0 Nucleated Red Blood 0.0 Cells # Hemoglobin A1c 12.5 H Bedside Glucose 337 H 293 H 314 H Test 03/20/18 23:55 03/21/18 06:27 03/21/18 08:18 Bedside Glucose 334 H 217 253 H CON CHRISTIANSON MD 03/21/18 1655: Assessment/Plan Assessment/Plan Result Diagram: 03/20/18 1042 03/20/18 0829 LISA CATES Mar 21, 2018 09:58 CON CHRISTIANSON MD Mar 21, 2018 16:55
[2018-03-21] MEDS ORDERED: BENAZEPRIL 20 MG TAB PO SCH (10:00)
[2018-03-21] MEDS ORDERED: MAGNESIUM CITRATE 300 ML BTL PO ONE (11:00)
[2018-03-21] MEDS: LUBIPROSTONE 8 MCG CAPSULE PO SCH ×2 (11:02→20:11)
--- NOTE | 2018-03-21 11:08 | NUR ---
Glycemic Management Referral: Thank you for the referral. R: Consider increasing basal to Levemir 15 units and starting a premeal bolus of NovoLog 5 units. Upon discharge, consider adding a premeal bolus or Glipizide/Prandin to assist with post prandial glucose elevation. Will attempt to follow up with pt at bedside.
--- NOTE | 2018-03-21 13:03 | CONS ---
Assessment/Plan Assessment/Plan Assessment/Plan (Daily) 1. Preoperative evaluation prior to upper extremity surgery for comminuted humeral fracture.-neg trop x 3/NL EF by echo and no sig valve abnl. BP overall improved. OK to proceed to OR at overall moderate CV risk on current medications without further noninvasive evaluation - planned for tomorrow am 2. Status post fall, rule out cardiac etiology, rule out cardiac arrhythmia. Per patient she states she tripped and fell. NO tachy-bardy on tele. 3. Hypertension, uncontrolled - con't to Rx - pain might be contributing. 4. Dyslipidemia. 5. Diabetes mellitus - on meds, con't to adjust Rx as needed. 6. Leukocytosis. 7. Uncontrolled blood sugars - DM Rx to goal. Consultation Date/Type/Reason Admit Date/Time Mar 19, 2018 at 13:16 Initial Consult Date 03/19/18 Requesting Provider: CON CHRISTIANSON MD Date/Time of Note DATE: 03/21/18 TIME: 13:01 24 HR Interval Summary Free Text/Dictation Surgery planned for tomorrow am - NO CP now. ROS: No fever, no chills, no nausea, no vomiting, no diarrhea/constipation No recent weight changes No chest pain, no PND, no orthopnea - mildSOB No dizziness, blurred vision No thirst, no heat or cold intolerance Exam/Review of Systems Exam Vitals Vital Signs Date Temp Pulse Resp B/P (MAP) Pulse Ox O2 O2 Flow FiO2 Time Delivery Rate 03/21/18 98.1 100 19 144/87 100 11:15 (106) 03/20/18 Room Air 00:00 Intake and Output 03/20/18 03/20/18 03/21/18 1515:00 23:00 07:00 IntakeIntake Total 110 ml 600 ml 500 ml BalanceBalance 110 ml 600 ml 500 ml Additional Comments General: WN/WD/NAD, AOx 3 HEENT: Unicetric/atraumatic/EOMI (follows commands) NECK: JVD elevated, no thyromegaly Lymph: no lymphadenopathy HEART: regular with no S3, II/ systolic murmur at apex LUNGS: Coarse sounds ABD: soft, NT, ND, +BS : Intact Neuro: non focal SKIN: chronic changes EXT: trace edema Results Result Diagram: 03/21/18 0945 03/21/18 0945 Results 24hrs Laboratory Tests Test 03/20/18 17:32 03/20/18 20:33 03/20/18 23:55 03/21/18 06:27 Bedside Glucose 293 H 314 H 334 H 217 Test 03/21/18 08:18 03/21/18 09:45 03/21/18 11:04 Bedside Glucose 253 H 218 White Blood Count 10.5 Red Blood Count 4.43 Hemoglobin 11.5 L Hematocrit 36.8 L Mean Corpuscular 83.1 Volume Mean Corpuscular 26.0 L Hemoglobin Mean Corpuscular 31.3 L Hemoglobin Concent Red Cell 13.1 Distribution Width Platelet Count 313 Mean Platelet Volume 10.6 H Immature 0.400 Granulocytes % Neutrophils % 70.1 Lymphocytes % 20.5 Monocytes % 8.0 Eosinophils % 0.6 Basophils % 0.4 Nucleated Red Blood 0.0 Cells % Immature 0.040 H Granulocytes # Neutrophils # 7.3 Lymphocytes # 2.2 Monocytes # 0.8 Eosinophils # 0.1 Basophils # 0.0 Nucleated Red Blood 0.0 Cells # Sodium Level 141 Potassium Level 4.1 Chloride Level 99 Carbon Dioxide Level 30 Anion Gap 12 Blood Urea Nitrogen 17 Creatinine 0.68 Est Glomerular > 60 Filtrat Rate mL/min Glucose Level 249 H Calcium Level 9.6 FRANCINE WATT MD Mar 21, 2018 13:03
--- NOTE | 2018-03-21 16:27 | NUR ---
Pt is stable, VS are WNL, BP is elevated PRN BP med is given will reassess later. Pain management is successful. Blood sugar is slightly elevated, Dr Harden is aware. Will monitor.
--- NOTE | 2018-03-21 17:35 | NUR ---
Pt will have Sx tomorrow, Pt is on NPO after midnight the order is in. Fluids will be started after pt is NPO the order is in. will monitor.
--- NOTE | 2018-03-21 18:22 | NUR ---
EOSS: Pt is scheduled for Sx 03/22/18. Pt is instructed to have nothing by mouth post midnight. Blood sugar is elevated covered with Novolog. BP is controlled at this time. All needs are attended. 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
[2018-03-21] MEDS: INSULIN DETEMIR [LEVEMIR] (100 UNITS/ML) SYG SC SCH (20:20)
[2018-03-21] MEDS: DEXTROSE 5%-0.45% NACL 1,000 ML IV SCH (23:59)
[2018-03-22] VITALS (26 sets, daily range): BP systolic 130–166; BP diastolic 65–98; PULSE 19–120; RESP 12–24
[2018-03-22] MEDS: INSULIN ASPART [NOVOLOG] 3 ML PEN SC SCH ×4 (00:15→17:19)
[2018-03-22] MEDS: ACCU-CHEK XX SCH (02:00)
[2018-03-22] MEDS: hydrALAzine 20 MG INJ IV PRN (04:16)
[2018-03-22] MEDS: PANTOPRAZOLE (EC) 40 MG TAB PO SCH (05:49)
[2018-03-22] MEDS ORDERED: SEVOFLURANE 15 MIN ONE (07:00)
--- NOTE | 2018-03-22 07:06 | PREAC ---
Date/Time of Note Date/Time of Note DATE: 03/22/18 TIME: 07:04 Anesthesia Eval and Record Evaluation Time Pre-Procedure Interview DATE: 03/22/18 TIME: 07:04 Age 62 Sex female NPO: 8 hrs Preoperative diagnosis Left proximal humerus fracture Planned procedure ORIF Past Medical History Past Medical History: Includes Cardio: HTN, Dyslipidemia Endo: Diabetes GI: Obesity Surgery & Anesthesia Issues No known issue Meds Anticoagulation: No Beta Katlin within 24 hr: No Reason Beta Katlin not given: Pt. not on B-Katlin Reported Medications Simvastatin (Simvastatin) 10 Mg Tablet, 10 MG PO DAILY, #30 TAB 03/19/18 Clonidine Hcl* (Clonidine Hcl*) 0.1 Mg Tab, 0.1 MG PO BID, TAB 03/19/18 Nifedipine* (Nifedipine ER*) 60 Mg Tablet.sa, 60 MG PO DAILY, TAB.SA 03/19/18 Loratadine* (Loratadine*) 10 Mg Tablet, 10 MG PO DAILY, #30 TAB 03/19/18 Aspirin* (Aspirin* EC) 81 Mg Tablet.dr, 81 MG PO DAILY, TAB 03/19/18 Insulin Glargine,Hum.rec.anlog (Basaglar Kwikpen U-100) 100 Unit/1 Ml Insuln.p en, 15 UNIT SC QAM, EA 03/19/18 Metformin* (Glucophage*) 1,000 Mg Tablet, 500 MG PO DAILY, #60 TAB 03/19/18 Benazepril Hcl* (Benazepril Hcl*) 20 Mg Tablet, 20 MG PO DAILY, TAB 11/06/13 Discontinued Reported Medications [Regular Insulin] No Conflict Check, SC AC MEALS 11/06/13 Metformin* (Glucophage*) 1,000 Mg Tablet, 1000 MG PO BID, TAB 11/06/13 Ibuprofen* (Ibuprofen*) 200 Mg Capsule, 600 MG PO BID PRN for PAIN, CAP 11/06/13 Current Medications Hydralazine HCl (Apresoline) 20 mg Q6H PRN IV SBP above 160 Last administered on 03/22/18at 04:16; Admin Dose 20 MG; Start 03/19/18 at 16:30 Diagnostic Test (Pha) (Accu-Chek) 1 ea 02 XX ; Start 03/20/18 at 02:00 Insulin Aspart (Novolog Insulin Pen) NOVOLOG *MILD* ALGORI... Q6 SC Last administered on 03/22/18at 06:23; Admin Dose 3 UNIT; Start 03/19/18 at 18:00 Clonidine (Catapres) 0.1 mg Q6H PRN PO SBP>170 Last administered on 03/21/18at 15:37; Admin Dose 0.1 MG; Start 03/19/18 at 17:00 Benazepril HCl (Lotensin) 20 mg BID PO Last administered on 03/21/18at 20:10; Admin Dose 20 MG; Start 03/19/18 at 21:00 Dextrose/Sodium Chloride 1,000 ml @ 50 mls/hr Q20H IV Last administered on 03/21/18at 23:59; Admin Dose 50 MLS/HR; Start 03/20/18 at 08:00 Morphine Sulfate (morphine) 4 mg Q4H PRN IV SEVERE PAIN LEVEL 7-10 Last administered on 03/22/18at 02:39; Admin Dose 4 MG; Start 03/20/18 at 12:30 Oxycodone/ Acetaminophen (Percocet (5/ 325)) 1 tab Q4H PRN PO MODERATE PAIN LEVEL 4-6 Last administered on 03/21/18at 23:59; Admin Dose 1 TAB; Start 03/20/18 at 10:30 Insulin Detemir (Levemir) 10 units QHS SC Last administered on 03/21/18at 20:20; Admin Dose 10 UNITS; Start 03/20/18 at 21:00 Linagliptin (Tradjenta) 5 mg DAILY PO Last administered on 03/21/18at 08:19; Admin Dose 5 MG; Start 03/20/18 at 10:30 Miscellaneous Information 1 ea NOTE XX ; Start 03/20/18 at 10:30 Glucose (Glutose) 15 gm Q15M PRN PO DECREASED GLUCOSE; Start 03/20/18 at 10:30 Glucose (Glutose) 22.5 gm Q15M PRN PO DECREASED GLUCOSE; Start 03/20/18 at 10:30 Dextrose (D50w Syringe) 25 ml Q15M PRN IV DECREASED GLUCOSE; Start 03/20/18 at 10:30 Dextrose (D50w Syringe) 50 ml Q15M PRN IV DECREASED GLUCOSE; Start 03/20/18 at 10:30 Glucagon (Glucagen) 1 mg Q15M PRN IM DECREASED GLUCOSE; Start 03/20/18 at 10:30 Glucose (Glutose) 15 gm Q15M PRN BUCCAL DECREASED GLUCOSE; Start 03/20/18 at 10:30 Nifedipine (Procardia Xl) 30 mg DAILY PO Last administered on 03/21/18at 08:19; Admin Dose 30 MG; Start 03/21/18 at 09:00 Lubiprostone (Amitiza) 16 mcg BID PO Last administered on 03/21/18at 11:02; Admin Dose 16 MCG; Start 03/21/18 at 11:00 Clonidine (Catapres) 0.1 mg BID PO Last administered on 03/21/18at 20:11; Admin Dose 0.1 MG; Start 03/21/18 at 21:00 Pantoprazole (Protonix Tab) 40 mg DAILY@06 PO ; Start 03/22/18 at 06:00 Meds reviewed: Yes Allergies Coded Allergies: No Known Allergy (Unverified , 11/06/13) Allergies Reviewed: Yes Labs/Studies Labs Reviewed: Reviewed by anesthesiologist Result Diagram: 03/21/1845 03/21/18 0945 Laboratory Tests 03/21/18 09:45 test: N/A Pre-procedure Exam Last vitals Vital Signs Date Temp Pulse Resp B/P (MAP) Pulse Ox O2 O2 Flow FiO2 Time Delivery Rate 03/22/18 145/69 05:49 (94) 03/22/18 92 04:00 03/22/18 98.3 20 95 04:00 03/20/18 Room Air 00:00 Airway: Adequate mouth opening Mallampati: Mallampati II Teeth: Abnormal (No upper teeth) Lung: Normal Heart: Normal ASA Physical Status ASA physical status: 3 Emergency: None Planned Anesthetic General/MAC: ETT Planned Pain Management Single shot nerve block, Parenteral pain med Pre-operative Attestations Prior to commencing anesthesia and surgery, the patient was re-evaluated, there was verification of: *The patient's identity *The results of appropriate recent lab work and preoperative vital signs *The above evaluation not changing prior to induction *Anesthetic plan, risk benefits, alternative and complications discussed with patient/family; questions answered; patient/family understands, accepts and wishes to proceed. YAJAIRA POZO MD Mar 22, 2018 07:06
--- NOTE | 2018-03-22 07:23 | CONS ---
Consult Date/Type/Reason Admit Date/Time Mar 19, 2018 at 13:16 Initial Consult Date 03/19/18 Requesting Provider: CON CHRISTIANSON MD Date/Time of Note DATE: 03/22/18 TIME: 07:18 Subjective Patient doing well No acute events overnight Pain is well controlled Objective Vitals Vital Signs Date Temp Pulse Resp B/P (MAP) Pulse Ox O2 O2 Flow FiO2 Time Delivery Rate 03/22/18 145/69 05:49 (94) 03/22/18 92 04:00 03/22/18 98.3 20 95 04:00 03/20/18 Room Air 00:00 Intake and Output 03/21/18 03/21/18 03/22/18 1515:00 23:00 07:00 IntakeIntake Total 900 ml 500 ml BalanceBalance 900 ml 500 ml Exam General: Awake, alert, in no acute distress, pleasant and cooperative Heart: regular rhythm Lungs: breathing comfortably, no tachypnea or dyspnea MUSCULOSKELETAL: Left upper extremity: Skin is intact. Ecchymosis. There is swelling of the proximal humerus. Tenderness to palpation along the proximal humerus. Sensation intact to light touch in a median, ulnar, radial, and axillary distribution. Motor is intact in a median, ulnar, radial, anterior interosseous, and posterior interosseous nerve distribution. Radial and ulnar artery are +2. Wrist extension and flexion are intact. Compartments are soft. Results/Medications Result Diagram: 03/21/18 0945 03/21/18 0945 Results 24 hrs Laboratory Tests Test 03/21/18 08:18 03/21/18 09:45 03/21/18 11:04 03/21/18 17:11 Bedside Glucose 253 H 218 304 H White Blood Count 10.5 Red Blood Count 4.43 Hemoglobin 11.5 L Hematocrit 36.8 L Mean Corpuscular 83.1 Volume Mean Corpuscular 26.0 L Hemoglobin Mean Corpuscular 31.3 L Hemoglobin Concent Red Cell 13.1 Distribution Width Platelet Count 313 Mean Platelet Volume 10.6 H Immature 0.400 Granulocytes % Neutrophils % 70.1 Lymphocytes % 20.5 Monocytes % 8.0 Eosinophils % 0.6 Basophils % 0.4 Nucleated Red Blood 0.0 Cells % Immature 0.040 H Granulocytes # Neutrophils # 7.3 Lymphocytes # 2.2 Monocytes # 0.8 Eosinophils # 0.1 Basophils # 0.0 Nucleated Red Blood 0.0 Cells # Sodium Level 141 Potassium Level 4.1 Chloride Level 99 Carbon Dioxide Level 30 Anion Gap 12 Blood Urea Nitrogen 17 Creatinine 0.68 Est Glomerular > 60 Filtrat Rate mL/min Glucose Level 249 H Calcium Level 9.6 Test 03/21/18 20:14 03/21/18 23:56 03/22/18 05:47 Bedside Glucose 257 H 282 H 246 H Home Meds Reported Medications Simvastatin (Simvastatin) 10 Mg Tablet, 10 MG PO DAILY, #30 TAB 03/19/18 Clonidine Hcl* (Clonidine Hcl*) 0.1 Mg Tab, 0.1 MG PO BID, TAB 03/19/18 Nifedipine* (Nifedipine ER*) 60 Mg Tablet.sa, 60 MG PO DAILY, TAB.SA 03/19/18 Loratadine* (Loratadine*) 10 Mg Tablet, 10 MG PO DAILY, #30 TAB 03/19/18 Aspirin* (Aspirin* EC) 81 Mg Tablet.dr, 81 MG PO DAILY, TAB 03/19/18 Insulin Glargine,Hum.rec.anlog (Basaglar Kwikpen U-100) 100 Unit/1 Ml Insuln.pen, 15 UNIT SC QAM, EA 03/19/18 Metformin* (Glucophage*) 1,000 Mg Tablet, 500 MG PO DAILY, #60 TAB 03/19/18 Benazepril Hcl* (Benazepril Hcl*) 20 Mg Tablet, 20 MG PO DAILY, TAB 11/06/13 Discontinued Reported Medications [Regular Insulin] No Conflict Check, SC AC MEALS 11/06/13 Metformin* (Glucophage*) 1,000 Mg Tablet, 1000 MG PO BID, TAB 11/06/13 Ibuprofen* (Ibuprofen*) 200 Mg Capsule, 600 MG PO BID PRN for PAIN, CAP 11/06/13 Medications Current Medications Hydralazine HCl (Apresoline) 20 mg Q6H PRN IV SBP above 160 Last administered on 03/22/18at 04:16; Admin Dose 20 MG; Start 03/19/18 at 16:30 Diagnostic Test (Pha) (Accu-Chek) 1 ea 02 XX ; Start 03/20/18 at 02:00 Insulin Aspart (Novolog Insulin Pen) NOVOLOG *MILD* ALGORI... Q6 SC Last administered on 03/22/18at 06:23; Admin Dose 3 UNIT; Start 03/19/18 at 18:00 Clonidine (Catapres) 0.1 mg Q6H PRN PO SBP>170 Last administered on 03/21/18at 15:37; Admin Dose 0.1 MG; Start 03/19/18 at 17:00 Benazepril HCl (Lotensin) 20 mg BID PO Last administered on 03/21/18 20:10; Admin Dose 20 MG; Start 03/19/18 at 21:00 Dextrose/Sodium Chloride 1,000 ml @ 50 mls/hr Q20H IV Last administered on 03/21/18at 23:59; Admin Dose 50 MLS/HR; Start 03/20/18 at 08:00 Morphine Sulfate (morphine) 4 mg Q4H PRN IV SEVERE PAIN LEVEL 7-10 Last administered on 03/22/18at 02:39; Admin Dose 4 MG; Start 03/20/18 at 12:30 Oxycodone/ Acetaminophen (Percocet (5/ 325)) 1 tab Q4H PRN PO MODERATE PAIN LEVEL 4-6 Last administered on 03/21/18at 23:59; Admin Dose 1 TAB; Start 03/20/18 at 10:30 Insulin Detemir (Levemir) 10 units QHS SC Last administered on 03/21/18at 20:20; Admin Dose 10 UNITS; Start 03/20/18 at 21:00 Linagliptin (Tradjenta) 5 mg DAILY PO Last administered on 03/21/18at 08:19; Admin Dose 5 MG; Start 03/20/18 at 10:30 Miscellaneous Information 1 ea NOTE XX ; Start 03/20/18 at 10:30 Glucose (Glutose) 15 gm Q15M PRN PO DECREASED GLUCOSE; Start 03/20/18 at 10:30 Glucose (Glutose) 22.5 gm Q15M PRN PO DECREASED GLUCOSE; Start 03/20/18 at 10:30 Dextrose (D50w Syringe) 25 ml Q15M PRN IV DECREASED GLUCOSE; Start 03/20/18 at 10:30 Dextrose (D50w Syringe) 50 ml Q15M PRN IV DECREASED GLUCOSE; Start 03/20/18 at 10:30 Glucagon (Glucagen) 1 mg Q15M PRN IM DECREASED GLUCOSE; Start 03/20/18 at 10:30 Glucose (Glutose) 15 gm Q15M PRN BUCCAL DECREASED GLUCOSE; Start 03/20/18 at 10:30 Nifedipine (Procardia Xl) 30 mg DAILY PO Last administered on 03/21/18at 08:19; Admin Dose 30 MG; Start 03/21/18 at 09:00 Lubiprostone (Amitiza) 16 mcg BID PO Last administered on 03/21/18at 11:02; Admin Dose 16 MCG; Start 03/21/18 at 11:00 Clonidine (Catapres) 0.1 mg BID PO Last administered on 03/21/18at 20:11; Admin Dose 0.1 MG; Start 03/21/18 at 21:00 Pantoprazole (Protonix Tab) 40 mg DAILY@06 PO ; Start 03/22/18 at 06:00 Assessment/Plan Hospital Course (Demo Recall) 62-year-old female with hypertension and diabetes mellitus with left proximal humerus fracture. Neurovascular intact. Plan: ORIF left proximal humerus N.p.o. Pain control Nonweightbearing left upper extremity Continue medical comanagement DEISY ELIZALDE MD Mar 22, 2018 07:23
[2018-03-22] MEDS ORDERED: MIDAZOLAM 1 MG/ML 2 ML INJ ONE (07:26)
[2018-03-22] MEDS ORDERED: PROPOFOL 20 ML ONE (07:37)
[2018-03-22] MEDS ORDERED: MEPERIDINE 100 MG INJ ONE (07:37)
[2018-03-22] MEDS ORDERED: NEOSTIGMINE 3 MG/3 ML SYRINGE ONE ×2 (07:37→12:29)
[2018-03-22] MEDS ORDERED: LIDOCAINE 2% (SDV) 5 ML INJ ONE (07:37)
[2018-03-22] MEDS ORDERED: SUCCINYLCHOLINE CHLORIDE 100 MG/5 ML SYG IV ONE (07:37)
[2018-03-22] MEDS ORDERED: GLYCOPYRROLATE 0.4 MG INJ ONE ×3 (07:37→12:29)
[2018-03-22] MEDS ORDERED: ROCURONIUM 50 MG INJ ONE ×2 (07:37→12:29)
[2018-03-22] MEDS ORDERED: POLYMYXIN/BACITRACIN 1L IRRIG IRR ONE (10:03)
[2018-03-22] MEDS ORDERED: FENTAnyl 50 MCG/ML VIAL ONE (11:43)
[2018-03-22] MEDS ORDERED: ONDANSETRON 4 MG INJ ONE (12:29)
[2018-03-22] MEDS ORDERED: METOCLOPRAMIDE 10 MG INJ ONE (12:29)
--- NOTE | 2018-03-22 12:46 | CONS ---
Assessment/Plan Assessment/Plan Assessment/Plan (Daily) ORIF of left humeral fracture diabetes hypertension Hemodynamically stable Continue Nifedipine and Benazepril Continue Clonidine Continue Insulin Continue Trajenta Consultation Date/Type/Reason Admit Date/Time Mar 19, 2018 at 13:16 Date/Time of Note DATE: 03/22/18 TIME: 12:44 Constitutional: no complaints Cardiovascular: no complaints Gastrointestinal: no complaints Past Medical History Home Meds Reported Medications Simvastatin (Simvastatin) 10 Mg Tablet, 10 MG PO DAILY, #30 TAB 03/19/18 Clonidine Hcl* (Clonidine Hcl*) 0.1 Mg Tab, 0.1 MG PO BID, TAB 03/19/18 Nifedipine* (Nifedipine ER*) 60 Mg Tablet.sa, 60 MG PO DAILY, TAB.SA 03/19/18 Loratadine* (Loratadine*) 10 Mg Tablet, 10 MG PO DAILY, #30 TAB 03/19/18 Aspirin* (Aspirin* EC) 81 Mg Tablet.dr, 81 MG PO DAILY, TAB 03/19/18 Insulin Glargine,Hum.rec.anlog (Basaglar Kwikpen U-100) 100 Unit/1 Ml Insuln.pen, 15 UNIT SC QAM, EA 03/19/18 Metformin* (Glucophage*) 1,000 Mg Tablet, 500 MG PO DAILY, #60 TAB 03/19/18 Benazepril Hcl* (Benazepril Hcl*) 20 Mg Tablet, 20 MG PO DAILY, TAB 11/06/13 Discontinued Reported Medications [Regular Insulin] No Conflict Check, SC AC MEALS 11/06/13 Metformin* (Glucophage*) 1,000 Mg Tablet, 1000 MG PO BID, TAB 11/06/13 Ibuprofen* (Ibuprofen*) 200 Mg Capsule, 600 MG PO BID PRN for PAIN, CAP 11/06/13 Medications Current Medications Hydralazine HCl (Apresoline) 20 mg Q6H PRN IV SBP above 160 Last administered on 03/22/18at 04:16; Admin Dose 20 MG; Start 03/19/18 at 16:30 Diagnostic Test (Pha) (Accu-Chek) 1 ea 02 XX ; Start 03/20/18 at 02:00 Insulin Aspart (Novolog Insulin Pen) NOVOLOG *MILD* ALGORI... Q6 SC Last administered on 03/22/18at 06:23; Admin Dose 3 UNIT; Start 03/19/18 at 18:00 Clonidine (Catapres) 0.1 mg Q6H PRN PO SBP>170 Last administered on 03/21/18at 15:37; Admin Dose 0.1 MG; Start 03/19/18 at 17:00 Benazepril HCl (Lotensin) 20 mg BID PO Last administered on 03/21/18at 20:10; Admin Dose 20 MG; Start 03/19/18 at 21:00 Dextrose/Sodium Chloride 1,000 ml @ 50 mls/hr Q20H IV Last administered on 03/21/18at 23:59; Admin Dose 50 MLS/HR; Start 03/20/18 at 08:00 Morphine Sulfate (morphine) 4 mg Q4H PRN IV SEVERE PAIN LEVEL 7-10 Last administered on 03/22/18at 02:39; Admin Dose 4 MG; Start 03/20/18 at 12:30 Oxycodone/ Acetaminophen (Percocet (5/ 325)) 1 tab Q4H PRN PO MODERATE PAIN LEVEL 4-6 Last administered on 03/21/18at 23:59; Admin Dose 1 TAB; Start 03/20/18 at 10:30 Insulin Detemir (Levemir) 10 units QHS SC Last administered on 03/21/18at 20:20; Admin Dose 10 UNITS; Start 03/20/18 at 21:00 Linagliptin (Tradjenta) 5 mg DAILY PO Last administered on 03/21/18at 08:19; Admin Dose 5 MG; Start 03/20/18 at 10:30 Miscellaneous Information 1 ea NOTE XX ; Start 03/20/18 at 10:30 Glucose (Glutose) 15 gm Q15M PRN PO DECREASED GLUCOSE; Start 03/20/18 at 10:30 Glucose (Glutose) 22.5 gm Q15M PRN PO DECREASED GLUCOSE; Start 03/20/18 at 10:30 Dextrose (D50w Syringe) 25 ml Q15M PRN IV DECREASED GLUCOSE; Start 03/20/18 at 10:30 Dextrose (D50w Syringe) 50 ml Q15M PRN IV DECREASED GLUCOSE; Start 03/20/18 at 10:30 Glucagon (Glucagen) 1 mg Q15M PRN IM DECREASED GLUCOSE; Start 03/20/18 at 10:30 Glucose (Glutose) 15 gm Q15M PRN BUCCAL DECREASED GLUCOSE; Start 03/20/18 at 10:30 Nifedipine (Procardia Xl) 30 mg DAILY PO Last administered on 03/21/18at 08:19; Admin Dose 30 MG; Start 03/21/18 at 09:00 Lubiprostone (Amitiza) 16 mcg BID PO Last administered on 03/21/18at 11:02; Admin Dose 16 MCG; Start 03/21/18 at 11:00 Clonidine (Catapres) 0.1 mg BID PO Last administered on 03/21/18at 20:11; Admin Dose 0.1 MG; Start 03/21/18 at 21:00 Pantoprazole (Protonix Tab) 40 mg DAILY@06 PO ; Start 03/22/18 at 06:00 Allergies: Coded Allergies: No Known Allergy (Unverified , 11/06/13) Past Surgical History Past Surgical Hx: no surgical history Social History Alcohol Use: none Smoking Status: Former smoker Drug Use: none Exam/Review of Systems Exam Vitals Vital Signs Date Temp Pulse Resp B/P (MAP) Pulse Ox O2 O2 Flow FiO2 Time Delivery Rate 03/22/18 97 08:01 03/22/18 145/69 05:49 (94) 03/22/18 98.3 20 95 04:00 03/20/18 Room Air 00:00 Intake and Output 03/21/18 03/21/18 03/22/18 1515:00 23:00 07:00 IntakeIntake Total 900 ml 500 ml BalanceBalance 900 ml 500 ml Constitutional: alert Head: normocephalic, atraumatic Neck: supple, non-tender Respiratory: clear to auscultation Cardiovascular: regular rate and rhythm (no m/r/g) Gastrointestinal: soft, nl liver, spleen Extremities: normal pulses Results Result Diagram: 03/21/18 0945 03/21/18 0945 Results 24hrs Laboratory Tests Test 03/21/18 17:11 03/21/18 20:14 03/21/18 23:56 03/22/18 05:47 Bedside Glucose 304 H 257 H 282 H 246 H Medications Medication Current Medications Hydralazine HCl (Apresoline) 20 mg Q6H PRN IV SBP above 160 Last administered on 03/22/18at 04:16; Admin Dose 20 MG; Start 03/19/18 at 16:30 Diagnostic Test (Pha) (Accu-Chek) 1 ea 02 XX ; Start 03/20/18 at 02:00 Insulin Aspart (Novolog Insulin Pen) NOVOLOG *MILD* ALGORI... Q6 SC Last administered on 03/22/18at 06:23; Admin Dose 3 UNIT; Start 03/19/18 at 18:00 Clonidine (Catapres) 0.1 mg Q6H PRN PO SBP>170 Last administered on 03/21/18at 15:37; Admin Dose 0.1 MG; Start 03/19/18 at 17:00 Benazepril HCl (Lotensin) 20 mg BID PO Last administered on 03/21/18at 20:10; Admin Dose 20 MG; Start 03/19/18 at 21:00 Dextrose/Sodium Chloride 1,000 ml @ 50 mls/hr Q20H IV Last administered on 03/21/18at 23:59; Admin Dose 50 MLS/HR; Start 03/20/18 at 08:00 Morphine Sulfate (morphine) 4 mg Q4H PRN IV SEVERE PAIN LEVEL 7-10 Last administered on 03/22/18at 02:39; Admin Dose 4 MG; Start 03/20/18 at 12:30 Oxycodone/ Acetaminophen (Percocet (5/ 325)) 1 tab Q4H PRN PO MODERATE PAIN LEVEL 4-6 Last administered on 03/21/18at 23:59; Admin Dose 1 TAB; Start 03/20/18 at 10:30 Insulin Detemir (Levemir) 10 units QHS SC Last administered on 03/21/18at 20:20; Admin Dose 10 UNITS; Start 03/20/18 at 21:00 Linagliptin (Tradjenta) 5 mg DAILY PO Last administered on 03/21/18 08:19; Admin Dose 5 MG; Start 03/20/18 at 10:30 Miscellaneous Information 1 ea NOTE XX ; Start 03/20/18 at 10:30 Glucose (Glutose) 15 gm Q15M PRN PO DECREASED GLUCOSE; Start 03/20/18 at 10:30 Glucose (Glutose) 22.5 gm Q15M PRN PO DECREASED GLUCOSE; Start 03/20/18 at 10:30 Dextrose (D50w Syringe) 25 ml Q15M PRN IV DECREASED GLUCOSE; Start 03/20/18 at 10:30 Dextrose (D50w Syringe) 50 ml Q15M PRN IV DECREASED GLUCOSE; Start 03/20/18 at 10:30 Glucagon (Glucagen) 1 mg Q15M PRN IM DECREASED GLUCOSE; Start 03/20/18 at 10:30 Glucose (Glutose) 15 gm Q15M PRN BUCCAL DECREASED GLUCOSE; Start 03/20/18 at 10:30 Nifedipine (Procardia Xl) 30 mg DAILY PO Last administered on 03/21/18at 08:19; Admin Dose 30 MG; Start 03/21/18 at 09:00 Lubiprostone (Amitiza) 16 mcg BID PO Last administered on 03/21/18at 11:02; Admin Dose 16 MCG; Start 03/21/18 at 11:00 Clonidine (Catapres) 0.1 mg BID PO Last administered on 03/21/18at 20:11; Admin Dose 0.1 MG; Start 03/21/18 at 21:00 Pantoprazole (Protonix Tab) 40 mg DAILY@06 PO ; Start 03/22/18 at 06:00 AKSHAT ALONZO M.D. Mar 22, 2018 12:46
[2018-03-22] MEDS ORDERED: MEPERIDINE 25 MG INJ IV PRN (13:00)
[2018-03-22] MEDS ORDERED: FENTAnyl 50 MCG/ML VIAL IV PRN ×2 (13:00)
[2018-03-22] MEDS ORDERED: MIDAZOLAM 1 MG/ML 2 ML INJ IV PRN (13:00)
[2018-03-22] MEDS ORDERED: hydrALAzine 20 MG INJ IV PRN (13:00)
[2018-03-22] MEDS ORDERED: METOCLOPRAMIDE 10 MG INJ IV PRN (13:00)
[2018-03-22] MEDS ORDERED: EPHEDrine SULFATE 50 MG/5 ML SYG IV PRN (13:00)
[2018-03-22] MEDS ORDERED: HYDROmorphONE 1 MG/5 ML IV SYRINGE IV PRN ×3 (13:00)
[2018-03-22] MEDS ORDERED: ONDANSETRON 4 MG INJ IV PRN ×2 (13:00→16:30)
[2018-03-22] MEDS ORDERED: OXYCODONE/ACETAMINOPHEN (5/325) TAB PO PRN ×2 (13:00)
[2018-03-22] MEDS ORDERED: DIPHENHYDRAMINE 50 MG INJ IV PRN (13:00)
--- NOTE | 2018-03-22 13:43 | NUR ---
RECEIVED PATIENT FROM OR VIA BED POST ORIF LEFT SHOULDER UNDER GENERAL ANESTHESIA. PATIENT AWAKE ON ARRIVAL . INCISION TO LEFT SHOULDER COVERED WITH MEPILEX DRY AND INTACT LEFT ARM ON ARM SLING ABLE TO MOVE HANDS . DENIES PAIN.SLIGHTLY TACHY HR 109. BP STABLE .ON O2 6L VIA FACE MASK SATURATING 100%.
[2018-03-22] MEDS: CEFAZOLIN 2 GM/50 ML (PMX) 50 ML IVPB SCH ×2 (14:00→21:07)
[2018-03-22] MEDS: FENTAnyl 50 MCG/ML VIAL IV PRN ×2 (14:20→14:44)
[2018-03-22] MEDS: LABETALOL HCL 20MG INJ IV PRN ×2 (14:23→15:01)
--- NOTE | 2018-03-22 14:24 | NUR ---
C/O PAIN 12/04 .FENTANYL 50MCG IV GIVEN .BP 162/98/[id number] IV GIVEN.
--- NOTE | 2018-03-22 15:13 | NUR ---
BP NOW DONW TO 150/77. PATIENT STILL C/O THROBBING TO OPERATED SITE. DILAUDID 0.6MG IV GIVEN.
--- NOTE | 2018-03-22 15:45 | OPR ---
Date/Time of Note Date/Time of Note DATE: 03/22/18 TIME: 15:22 Operative Report Procedure Date: Mar 22, 2018 Preoperative Diagnosis Left 2 part surgical neck fracture of the proximal humerus with nondisplaced greater tuberosity fracture Postoperative Diagnosis As above Operation/Procedure Performed Open reduction internal fixation of left proximal humerus fracture with repair of greater tuberosity CPT code 08132 Modifier 22: Patient is obese with a BMI of 36. Positioning was extremely difficult and took over 1 hour of intraoperative time. High BMI also increased the complexity as well as time and effort of the case by at least 25% making exposure and reduction very difficult. Secondary to patient's BMI and positioning intraoperative fluoroscopy was also very difficult and was therefore difficult to reduce and fix the fracture. Surgeon see signature line Respite Provider None Anesthesia Type: general Estimated Blood Loss: 200 - 250 ml's Transfusion none Specimen None Grafts/Implants [place] left proximal humerus locking plate -6 hole 1 nonlocking cancellus screw in the head 4 x 46 mm 7 locking screws and proximal humerus 1 nonlocking cortical shaft screw 2 locking screws and shaft Complications none Pt Condition Post Procedure: stable Disposition: PACU Procedure Description Indications and consent: Patient is a 62-year-old [id number] female. She has a past medical history of obesity and diabetes mellitus. She has a history of multiple falls. She sustained a fall at home on 03/18/2018. She presented to the emergency department the following day on 03/19/2018. Patient was neurovascular intact on examination. She was found to have a completely displaced 2 part proximal humerus fracture with a nondisplaced greater tuberosity fracture as well as a small intra-articular fracture that was nondisplaced. Therefore recommended surgery which was open reduction internal fixation with a locking plate. I reviewed the benefits and risks with the patient. The risks include but not limited to cardiopulmonary risks, anesthesia, bleeding, infection, nonunion, malunion, hardware failure, AVN, neurovascular injury, need for further surgery, stiffness, pain. She understood these risks and wished to proceed with surgery. She was originally scheduled for surgery that evening however she was not cleared and therefore was scheduled for Saturday morning. Procedure in detail: The patient was brought into the operating room. She is intubated on the hospital bed and transferred to the operating table. All bony problems were well padded. We had significant difficulty in positioning the patient secondary to the patient's large body habitus with a BMI of 36. In order to obtain proper fluoroscopy during the surgery her left shoulder needed to be exposed. However there is concern that she could fall off the bed. Therefore multiple posts and belts were used until I felt that she was stable on the bed. She was then put in a beachchair position with the head being held by Segura. Before prepping and draping it was confirmed that AP lateral and axillary views were obtainable. The arm was pre-scrubbed with a chlorhexidine brush. This was followed by st rogel sterile prep and drape of left upper extremity. Once this was completed timeout was performed from the patient's name, medical record number, diagnosis, procedure to be performed, laterality procedure 2 g of Ancef were dosed. This time marking pen was used to luis fernando at the coracoid. A longitudinal incision approximately 15-20 cm in length was made proximal to the coracoid down towards the direction of the deltoid tuberosity. A padded Ordonez was used to hold the operative extremity. The deltopectoral approach was used. The cephalic vein was not visualized. The deltoid was retracted laterally and packed medially. The clavicular pectoral fascia was incised. The subscap was identified as well as the conjoined tendon. The conjoined tendon was gently retracted medially. The subscapularis was left alone. Fracture hematoma was visualized and debrided out with a combination of rongeurs, curettes and irrigation the nondisplaced greater tuberosity fracture was not appreciated intraoperatively and was stable. The surgical neck was significantly shortened. The anterior lateral cortex of the proximal humerus was significantly comminuted a large Steinmann pin was used as a joystick to control the the head. A lobster claw was used to control the humerus. A small portion of the pec insertion was released. There was no release of the deltoid insertion. Once control of the proximal distal fragments were obtained preliminary reduction was maintained with 2 K wires. Fluoroscopy was used to confirm reduction however during manipulation the arm the reduction fell apart. At this time the reduction was held together manually with no manip ulation of the arm. A proximal humerus locking plate was placed against humerus. K wire was used to position the plate proximally and another K wire was placed distally to hold in place. This was preliminarily holding reduction better than the prior 2 K wires. Fluoroscopy was used to confirm a good reduction. At this time a couple more K wires was placed proximally in the head . A nonlocking cortical screw was placed in the shaft to suck down the plate. This was followed by a nonlocking cancellus screw placed into the central hole of the plate. Positioning of the plate and screw were confirmed on fluoroscopy. Positioning was good. At this time care was taken to continue to drill and placed locking screws in the proximal portion of the plate. This was done under fluoroscopy to ensure no penetration into the joint. The screws were placed as long as possible and were placed in a divergent pattern predetermined by the locking mechanism. The most inferior screws did go through quite a bit of comminution on the lateral cortex. Once this is complete 2 more screws were placed in the shaft. These were locking screws. Final films showed good reduction and fixation. This was confirmed on AP, lateral and axillary of the shoulder. There is no intra-articular screw placement. At this time #2 FiberWire was used to suture the supraspinatus tendon to the plate in order to prevent displacement of the greater tuberosity fracture. Once this was complete the wound was closely irrigated and the deltopectoral interval was closed loosely with a running stitch of 0 Vicryl. The subcutaneous tissues were closed with simple interrupted 2-0 Vicryl. Skin was closed with mili. Wound was dressed with Mepilex AG. Patient was placed in a sling. All counts were correct x2 Patient was then extubated and transferred from operating table to the hospital bed. She was transferred to PAC in stable condition. Postoperatively she was neurovascular intact. Disposition: Patient remained nonweightbearing left upper extremity. She will be allowed to do pendulums for the left shoulder. Full range of motion for elbow wrist and hand. She will be on Ancef 2 g for 24 hours. She will need physical therapy and occupational therapy. She will be on DVT prophylaxis while admitted to the hospital with SCDs and subcutaneous heparin. Patient will follow-up with me in 2 weeks. DEISY ELIZALDE MD Mar 22, 2018 15:45
--- NOTE | 2018-03-22 15:45 | NUR ---
TRANSFERRED TO [facility] IN STABLE CONDITION .DRESSING TO LEFT HUMERUS DRY AND INTACT. REPORT GIVEN TO MARYSOL Manriquez
--- NOTE | 2018-03-22 16:07 | NUR ---
RECEIVED PATIENT FROM PACU. PT AOX4, NO COMPLAINTS OF PAIN. FAMILY AT THE BEDSIDE. PAGED DR. CHRISTIANSON AND DR. ELIZALDE FOR PRN PAIN MEDS. AWAITING FOR CALL BACK.
--- NOTE | 2018-03-22 16:13 | PN ---
Date/Time of Note Date/Time of Note DATE: 03/22/18 TIME: 16:12 Assessment/Plan VTE Prophylaxis Risk score (from Nsg)>0 risk: 4 SCD applied (from Nsg): Yes Pharmacological prophylaxis: NA/contraindicated Pharm contraindication: low risk/ambulating Lines/Catheters IV Catheter Type (from Nrsg): Peripheral IV Urinary Cath still in place: No Assessment/Plan Hospital Course 62 y/o with ospital Course 1. Left arm dislocation with surgical neck humerus fracture. SIRS, wbc 12 2. S/p two ground falls 3. Hypertension 4. Hyperlipidemia, 5. Type DM II 6. hx of diverticulosis 7. Obesity 8. chronic back pain and osteoarthritis both knees, pt is taking Tylenol # 4 BID for more than a month. Pt has opiates intake history. [place] make her sick, she prefers Vicodin 7.5 9. Ventral hernia Assessment/Plan - OR today - pain control Result Diagram: 03/21/18 0945 03/21/18 0945 Results 24hrs Laboratory Tests Test 03/21/18 17:11 03/21/18 20:14 03/21/18 23:56 03/22/18 05:47 Bedside Glucose 304 H 257 H 282 H 246 H Subjective 24 Hr Interval Summary Free Text/Dictation OR today Exam/Review of Systems Exam Vitals Vital Signs Date Temp Pulse Resp B/P (MAP) Pulse Ox O2 O2 Flow FiO2 Time Delivery Rate 03/22/18 97.4 96 19 163/76 96 15:54 (105) 03/22/18 Room Air 15:23 03/22/18 3.0 14:00 Intake and Output 03/21/18 03/21/18 03/22/18 1515:00 23:00 07:00 IntakeIntake Total 900 ml 500 ml BalanceBalance 900 ml 500 ml Results Results 24hrs Laboratory Tests Test 03/21/18 17:11 03/21/18 20:14 03/21/18 23:56 03/22/18 05:47 Bedside Glucose 304 H 257 H 282 H 246 H Medications Medication Current Medications Hydralazine HCl (Apresoline) 20 mg Q6H PRN IV SBP above 160 Last administered on 03/22/18at 04:16; Admin Dose 20 MG; Start 03/19/18 at 16:30 Diagnostic Test (Pha) (Accu-Chek) XX ; Start 03/20/18 at 02:00 Insulin Aspart (Novolog Insulin Pen) NOVOLOG *MILD* ALGORI... Q6 SC Last administered on 03/22/18at 06:23; Admin Dose 3 UNIT; Start 03/19/18 at 18:00 Clonidine (Catapres) 0.1 mg Q6H PRN PO SBP>170 Last administered on 03/21/18at 15:37; Admin Dose 0.1 MG; Start 03/19/18 at 17:00 Benazepril HCl (Lotensin) 20 mg BID PO Last administered on 03/21/18 20:10; Admin Dose 20 MG; Start 03/19/18 at 21:00 Dextrose/Sodium Chloride 1,000 ml @ 50 mls/hr Q20H IV Last administered on 03/21/18at 23:59; Admin Dose 50 MLS/HR; Start 03/20/18 at 08:00 Morphine Sulfate (morphine) 4 mg Q4H PRN IV SEVERE PAIN LEVEL 7-10 Last administered on 03/22/18at 02:39; Admin Dose 4 MG; Start 03/20/18 at 12:30 Oxycodone/ Acetaminophen (Percocet (5/ 325)) 1 tab Q4H PRN PO MODERATE PAIN LEVEL 4-6 Last administered on 03/21/18at 23:59; Admin Dose 1 TAB; Start 03/20/18 at 10:30 Insulin Detemir (Levemir) 10 units QHS SC Last administered on 03/21/18 20:20; Admin Dose 10 UNITS; Start 03/20/18 at 21:00 Linagliptin (Tradjenta) 5 mg DAILY PO Last administered on 03/21/18at 08:19; Admin Dose 5 MG; Start 03/20/18 at 10:30 Miscellaneous Information 1 ea NOTE XX ; Start 03/20/18 at 10:30 Glucose (Glutose) 15 gm Q15M PRN PO DECREASED GLUCOSE; Start 03/20/18 at 10:30 Glucose (Glutose) 22.5 gm Q15M PRN PO DECREASED GLUCOSE; Start 03/20/18 at 10:30 Dextrose (D50w Syringe) 25 ml Q15M PRN IV DECREASED GLUCOSE; Start 03/20/18 at 10:30 Dextrose (D50w Syringe) 50 ml Q15M PRN IV DECREASED GLUCOSE; Start 03/20/18 at 10:30 Glucagon (Glucagen) 1 mg Q15M PRN IM DECREASED GLUCOSE; Start 03/20/18 at 10:30 Glucose (Glutose) 15 gm Q15M PRN BUCCAL DECREASED GLUCOSE; Start 03/20/18 at 10:30 Nifedipine (Procardia Xl) 30 mg DAILY PO Last administered on 03/21/18at 08:19; Admin Dose 30 MG; Start 03/21/18 at 09:00 Lubiprostone (Amitiza) 16 mcg BID PO Last administered on 03/21/18at 11:02; Admin Dose 16 MCG; Start 03/21/18 at 11:00 Clonidine (Catapres) 0.1 mg BID PO Last administered on 03/21/18at 20:11; Admin Dose 0.1 MG; Start 03/21/18 at 21:00 Pantoprazole (Protonix Tab) 40 mg DAILY@06 PO ; Start 03/22/18 at 06:00 Hydromorphone HCl (Dilaudid) 0.2 mg PACU PRN IV MILD PAIN 1-3; Start 03/22/18 at 13:00; Stop 03/22/18 at 17:00 Hydromorphone HCl (Dilaudid) 0.4 mg PACU PRN IV MOD PAIN 4-6; Start 03/22/18 at 13:00; Stop 03/22/18 at 17:00 Hydromorphone HCl (Dilaudid) 0.6 mg PACU PRN IV SEVERE PAIN 7-10 Last administered on 03/22/18at 15:15; Admin Dose 0.6 MG; Start 03/22/18 at 13:00; Stop 03/22/18 at 17:00 Fentanyl (Sublimaze) 25 mcg PACU ORDER PRN IV MILD PAIN 1-3; Start 03/22/18 at 13:00; Stop 03/22/18 at 17:00 Fentanyl (Sublimaze) 50 mcg PACU ORDER PRN IV MOD PAIN 4-6 Last administered on 03/22/18at 14:44; Admin Dose 50 MCG; Start 03/22/18 at 13:00; Stop 03/22/18 at 17:00 Fentanyl (Sublimaze) 75 mcg PACU ORDER PRN IV SEVERE PAIN 7-10; Start 03/22/18 at 13:00; Stop 03/22/18 at 17:00 Oxycodone/ Acetaminophen (Percocet (5/ 325)) 1 tab PACU ORDER PRN PO .PAIN 1-5; Start 03/22/18 at 13:00; Stop 03/22/18 at 17:00 Oxycodone/ Acetaminophen (Percocet (5/ 325)) 2 tab PACU ORDER PRN PO .PAIN 6-10; Start 03/22/18 at 13:00; Stop 03/22/18 at 17:00 Ondansetron HCl (Zofran Inj) 4 mg PACU ORDER PRN IV NAUSEA/VOMITING; Start 03/22/18 at 13:00; Stop 03/22/18 at 17:00 Metoclopramide HCl (Reglan) 10 mg PACU ORDER PRN IV NAUSEA/VOMITING; Start 03/22/18 at 13:00; Stop 03/22/18 at 17:00 Labetalol HCl (Labetalol) 5 mg PACU ORDER PRN IV HIGH BLOOD PRESSURE Last administered on 03/22/18at 15:01; Admin Dose 5 MG; Start 03/22/18 at 13:00; Stop 03/22/18 at 17:00 Hydralazine HCl (Apresoline) 5 mg PACU ORDER PRN IV HIGH BLOOD PRESSURE; Start 03/22/18 at 13:00; Stop 03/22/18 at 17:00 Ephedrine Sulfate 5 mg PACU ORDER PRN IV BLOOD PRESSURE SUPPORT; Start 03/22/18 at 13:00; Stop 03/22/18 at 17:00 Meperidine HCl (Demerol) 25 mg PACU ORDER PRN IV .RIGORS; Start 03/22/18 at 13:00; Stop 03/22/18 at 17:00 Diphenhydramine HCl (Benadryl) 25 mg PACU ORDER PRN IV .PRURITUS; Start 03/22/18 at 13:00; Stop 03/22/18 at 17:00 Midazolam HCl (Versed) 0.5 mg PACU ORDER PRN IV .ANXIETY; Start 03/22/18 at 13:00; Stop 03/22/18 at 17:00 Heparin Sodium (Porcine) (Heparin (5000 Units/1ml)) 5,000 unit Q8 SC ; Start 03/22/18 at 14:00 Cefazolin Sodium/ Dextrose 50 ml @ 100 mls/hr Q8 IVPB ; Start 03/22/18 at 14:00; Stop 03/23/18 at 06:29 CON CHRISTIANSON MD Mar 22, 2018 16:13
--- NOTE | 2018-03-22 16:20 | PAC ---
Date/Time of Note Date/Time of Note DATE: 03/22/18 TIME: 16:20 Post-Anesthesia Notes Post-Anesthesia Note Last documented vital signs Vital Signs Date Temp Pulse Resp B/P (MAP) Pulse Ox O2 O2 Flow FiO2 Time Delivery Rate 03/22/18 97.4 96 19 163/76 96 15:54 (105) 03/22/18 Room Air 15:23 03/22/18 3.0 14:00 Activity: WNL Respiratory function: WNL Cardiovascular function: WNL Mental status: Baseline Pain reasonably controlled: Yes Hydration appropriate: Yes Nausea/Vomiting absent: Yes YAJAIRA POZO MD Mar 22, 2018 16:20
[2018-03-22] MEDS ORDERED: oxyCODONE 5 MG TAB PO PRN ×2 (16:30)
[2018-03-22] MEDS: LUBIPROSTONE 8 MCG CAPSULE PO SCH ×2 (16:33→21:04)
[2018-03-22] MEDS: BENAZEPRIL 20 MG TAB PO SCH ×2 (16:34→21:05)
[2018-03-22] MEDS: LINAGLIPTIN 5 MG TABLET PO SCH (16:34)
[2018-03-22] MEDS: NIFEdipine (XL) 30 MG TAB PO SCH (16:34)
[2018-03-22] MEDS: HEPARIN 5,000 UNIT/1 ML VIAL SC SCH ×2 (16:51→21:18)
[2018-03-22] MEDS: HYDROmorphONE 1 MG/ML SYG IV PRN (18:00)
--- NOTE | 2018-03-22 19:39 | NUR ---
EOSS: Patient remain stable. VS within normal limits. BS covered with insulin. Hourly rounding done. Elevate left arm (on sling) on a pillow. Wound dressings intact. Administered scheduled meds. PRN pain meds provided. Patient doesn't have appetite. Family was at the bedside. Will endorse plan of care to the next shift.
[2018-03-22] MEDS: ACETAMINOPHEN 500 MG TAB PO SCH (21:04)
[2018-03-22] MEDS: INSULIN DETEMIR [LEVEMIR] (100 UNITS/ML) SYG SC SCH (21:17)
[2018-03-22] MEDS: oxyCODONE 15 MG TAB PO PRN (21:34)
[2018-03-23] VITALS (9 sets, daily range): BP systolic 137–162; BP diastolic 65–82; PULSE 98–110; RESP 16–20
[2018-03-23] MEDS: INSULIN ASPART [NOVOLOG] 3 ML PEN SC SCH ×5 (01:10→23:53)
[2018-03-23] MEDS: oxyCODONE 15 MG TAB PO PRN ×3 (01:24→20:10)
[2018-03-23] MEDS: ACCU-CHEK XX SCH (02:00)
[2018-03-23] MEDS: HYDROmorphONE 1 MG/ML SYG IV PRN ×2 (03:35→15:35)
[2018-03-23] MEDS: PANTOPRAZOLE (EC) 40 MG TAB PO SCH (06:01)
[2018-03-23] MEDS: CEFAZOLIN 2 GM/50 ML (PMX) 50 ML IVPB SCH (06:02)
[2018-03-23] MEDS: HEPARIN 5,000 UNIT/1 ML VIAL SC SCH ×3 (06:11→20:25)
[2018-03-23] MEDS ORDERED: VITAMIN A & D 5 GM OINT PACKET TOP ONE (06:13)
[2018-03-23] MEDS: LUBIPROSTONE 8 MCG CAPSULE PO SCH ×2 (08:07→20:10)
[2018-03-23] MEDS: ACETAMINOPHEN 500 MG TAB PO SCH ×3 (08:07→20:09)
[2018-03-23] MEDS: NIFEdipine (XL) 30 MG TAB PO SCH (08:08)
[2018-03-23] MEDS: BENAZEPRIL 20 MG TAB PO SCH ×2 (08:08→20:10)
[2018-03-23] MEDS: LINAGLIPTIN 5 MG TABLET PO SCH (08:09)
--- NOTE | 2018-03-23 10:30 | NUR ---
PT evaluation Therapy day number 1 Evaluation Start Time 10:30 Evaluation End Time 11:25 Evaluation Total Time 55 min Subjective Current complaint of pain Pain Scale NUMERIC Pain Intensity 5 (0-10) Patient Stated Goal for Pain Relief 0 (0-10) Pain Level Comment L shoulder Pre Treatment Vital Signs Stable Yes Supine to Sit Moderate Assist Transfer Sit to Stand Ability Moderate Assist Bed Mobility Sit to Supine Moderate Assist Bed Transfer Ability Contact Guard Assist Chair Transfer Ability Contact Guard Assist Additional Mobility Comments with no AD Gait Assist Levels Contact Guard Assist Assistive Devices None Ambulation Distance 40 feet Additional Gait Comments slow austen, high guard gait Weight Bearing Assessment Label Left Upper Extremity Weight Bearing Status Non Weight Bearing Additional Weight Bearing Comments sling while OOB Static Sitting Balance Fair Dynamic Sitting Balance Fair Standing Static Balance Fair Dynamic Standing Balance Fair Safety Judgement Fair Activity Tolerance Fair Equipment Present A pump Villarreal Catheter IV pump Additional Equipment Present sling Post Treatment Pain Intensity 0 0-10 Additional Post Treatment Comment See note Total Minutes 55 Total Units 4 PT Technical Record Comment 62 yo female presents s/p "slipped" ground level mechanical fall suffered 2 part fracture involving the surgical neck of L humerus. Additionally presents with nondisplaced fracture of greater tuberosity and superior articular surface of humeral head. Pt now s/p ORIF L humerus 03/22/18. PMH: hypertension, hyperlipidemia, DM, diverticulosis PLOF: patient lives in [facility] with daughter who is minimally able to assist. Patient has 7 stairs B railing to enter home. Patient previously mod I with no AD, no DME present at home Precaution: NWB LUE, sling while OOB S: Patient in bed, agreeable to PT evaluation. Patient cleared for activity per RN O: PT evaluation completed, pt returned back to bed following therapy intervention with call light within reach and bed alarm activated. Spoke to RN regarding pt response to activity and PT plan of care. No reports of pain, dizziness, or shortness of breath with activity. PT repositioned sling prior to OOB mobility, maintained NWB LUE A: Pt presents with fair mobility while upright with slow austen, wide base of support, and shuffling gait. Pt receptive to PT education but required education on WB limitations. Patient may ambulate with nursing assist. Patient could benefit from skilled inpatient physical therapy to improve strength, functional mobility, and independence. P progress bed mobility, gait as tolerated Recommendation: no DME needs required at this time, patient could benefit from HHPT vs SNF post hospitalization based on patient progress in therapy when medically cleared by
--- NOTE | 2018-03-23 11:01 | PN ---
Date/Time of Note Date/Time of Note DATE: 03/23/18 TIME: 10:59 Assessment/Plan VTE Prophylaxis Risk score (from Ns)>0 risk: 11 SCD applied (from Ns): Yes Pharmacological prophylaxis: heparin Lines/Catheters IV Catheter Type (from Nrsg): Saline Lock Urinary Cath still in place: No Assessment/Plan Hospital Course 1. Left arm dislocation with surgical neck humerus fracture. S/P ORIF with repair of greater tuberosity. SIRS, wbc 12 2. S/p two ground falls 3. Hypertension 4. Hyperlipidemia, 5. Type DM II 6. hx of diverticulosis 7. Obesity 8. chronic back pain and osteoarthritis both knees, pt is taking Tylenol # 4 BID for more than a month. Pt has opiates intake history. [place] make her sick, she prefers Vicodin 7.5 9. Ventral hernia Assessment/Plan -c/w PT. -DVT prophylaxis heparin -GI prophylaxis Protonix -c/w pain control -hypoglycemic control, c/w Insulin 10 units daily -c/w Tradjenta -restart pt home meds -Dr Mccallum cardiology consult -Dr Saxena, ortho. surgeon Result Diagram: 03/23/18 0510 03/23/18 0500 Results 24hrs Laboratory Tests Test 03/22/18 17:07 03/22/18 21:03 03/23/18 00:23 03/23/18 05:00 Bedside Glucose 291 H 299 H 291 H Sodium Level 139 Potassium Level 4.6 Chloride Level 103 Carbon Dioxide Level 26 Anion Gap 10 Blood Urea Nitrogen 16 Creatinine 0.57 Est Glomerular > 60 Filtrat Rate mL/min Glucose Level 254 H Calcium Level 8.8 Test 03/23/18 05:10 03/23/18 06:05 White Blood Count 13.5 #H Red Blood Count 3.47 #L Hemoglobin 9.1 #L Hematocrit 28.8 #L Mean Corpuscular 83.0 Volume Mean Corpuscular 26.2 L Hemoglobin Mean Corpuscular 31.6 L Hemoglobin Concent Red Cell 13.2 Distribution Width Platelet Count 268 Mean Platelet Volume 10.1 Immature 0.300 Granulocytes % Neutrophils % 78.9 H Lymphocytes % 10.9 L Monocytes % 9.6 Eosinophils % 0.1 Basophils % 0.2 Nucleated Red Blood 0.0 Cells % Immature 0.040 H Granulocytes # Neutrophils # 10.7 H Lymphocytes # 1.5 Monocytes # 1.3 H Eosinophils # 0.0 Basophils # 0.0 Nucleated Red Blood 0.0 Cells # Bedside Glucose 280 H Subjective 24 Hr Interval Summary Constitutional: no complaints Exam/Review of Systems Exam Vitals Vital Signs Date Temp Pulse Resp B/P (MAP) Pulse Ox O2 O2 Flow FiO2 Time Delivery Rate 03/23/18 105 08:01 03/23/18 98.7 18 137/67 98 Room Air 07:44 (90) 03/22/18 3.0 14:00 Intake and Output 03/22/18 03/22/18 03/23/18 1515:00 23:00 07:00 IntakeIntake Total 2600 ml 470 ml 300 ml OutputOutput Total 400 ml 200 ml 650 ml BalanceBalance 2200 ml 270 ml -350 ml Constitutional: alert, oriented Respiratory: clear to auscultation Cardiovascular: regular rate and rhythm Gastrointestinal: soft Musculoskeletal: muscle weakness (left arm) Extremities: other (surgical scar left arm) Results Results 24hrs Laboratory Tests Test 03/22/18 17:07 03/22/18 21:03 03/23/18 00:23 03/23/18 05:00 Bedside Glucose 291 H 299 H 291 H Sodium Level 139 Potassium Level 4.6 Chloride Level 103 Carbon Dioxide Level 26 Anion Gap 10 Blood Urea Nitrogen 16 Creatinine 0.57 Est Glomerular > 60 Filtrat Rate mL/min Glucose Level 254 H Calcium Level 8.8 Test 03/23/18 05:10 03/23/18 06:05 White Blood Count 13.5 #H Red Blood Count 3.47 #L Hemoglobin 9.1 #L Hematocrit 28.8 #L Mean Corpuscular 83.0 Volume Mean Corpuscular 26.2 L Hemoglobin Mean Corpuscular 31.6 L Hemoglobin Concent Red Cell 13.2 Distribution Width Platelet Count 268 Mean Platelet Volume 10.1 Immature 0.300 Granulocytes % Neutrophils % 78.9 H Lymphocytes % 10.9 L Monocytes % 9.6 Eosinophils % 0.1 Basophils % 0.2 Nucleated Red Blood 0.0 Cells % Immature 0.040 H Granulocytes # Neutrophils # 10.7 H Lymphocytes # 1.5 Monocytes # 1.3 H Eosinophils # 0.0 Basophils # 0.0 Nucleated Red Blood 0.0 Cells # Bedside Glucose 280 H Medications Medication Current Medications Hydralazine HCl (Apresoline) 20 mg Q6H PRN IV SBP above 160 Last administered on 03/22/18at 04:16; Admin Dose 20 MG; Start 03/19/18 at 16:30 Diagnostic Test (Pha) (Accu-Chek) 1 ea 02 XX ; Start 03/20/18 at 02:00 Insulin Aspart (Novolog Insulin Pen) NOVOLOG *MILD* ALGORI... Q6 SC Last administered on 03/23/18at 06:11; Admin Dose 4 UNIT; Start 03/19/18 at 18:00 Clonidine (Catapres) 0.1 mg Q6H PRN PO SBP>170 Last administered on 03/21/18at 15:37; Admin Dose 0.1 MG; Start 03/19/18 at 17:00 Benazepril HCl (Lotensin) 20 mg BID PO Last administered on 03/23/18at 08:08; Admin Dose 20 MG; Start 03/19/18 at 21:00 Insulin Detemir (Levemir) 10 units QHS SC Last administered on 03/22/18at 21:17; Admin Dose 10 UNITS; Start 03/20/18 at 21:00 Linagliptin (Tradjenta) 5 mg DAILY PO Last administered on 03/23/18at 08:09; Admin Dose 5 MG; Start 03/20/18 at 10:30 Miscellaneous Information 1 ea NOTE XX ; Start 03/20/18 at 10:30 Glucose (Glutose) 15 gm Q15M PRN PO DECREASED GLUCOSE; Start 03/20/18 at 10:30 Glucose (Glutose) 22.5 gm Q15M PRN PO DECREASED GLUCOSE; Start 03/20/18 at 10:30 Dextrose (D50w Syringe) 25 ml Q15M PRN IV DECREASED GLUCOSE; Start 03/20/18 at 10:30 Dextrose (D50w Syringe) 50 ml Q15M PRN IV DECREASED GLUCOSE; Start 03/20/18 at 10:30 Glucagon (Glucagen) 1 mg Q15M PRN IM DECREASED GLUCOSE; Start 03/20/18 at 10:30 Glucose (Glutose) 15 gm Q15M PRN BUCCAL DECREASED GLUCOSE; Start 03/20/18 at 10:30 Nifedipine (Procardia Xl) 30 mg DAILY PO Last administered on 03/23/18at 08:08; Admin Dose 30 MG; Start 03/21/18 at 09:00 Lubiprostone (Amitiza) 16 mcg BID PO Last administered on 03/23/18 08:07; Admin Dose 16 MCG; Start 03/21/18 at 11:00 Clonidine (Catapres) 0.1 mg BID PO Last administered on 03/23/18 08:08; Admin Dose 0.1 MG; Start 03/21/18 at 21:00 Pantoprazole (Protonix Tab) 40 mg DAILY@06 PO Last administered on 03/23/18 06:01; Admin Dose 40 MG; Start 03/22/18 at 06:00 Heparin Sodium (Porcine) (Heparin (5000 Units/1ml)) 5,000 unit Q8 SC Last administered on 03/23/18 06:11; Admin Dose 5,000 UNIT; Start 03/22/18 at 14:00 Ondansetron HCl (Zofran Inj) 4 mg Q6H PRN IV NAUSEA AND/OR VOMITING; Start 03/22/18 at 16:30 Oxycodone HCl (Roxicodone) 5 mg Q4H PRN PO PAIN LEVEL 1-3; Start 03/22/18 at 16:30 Oxycodone HCl (Roxicodone) 10 mg Q4H PRN PO PAIN LEVEL 4-7; Start 03/22/18 at 16:30 Oxycodone HCl (Roxicodone) 15 mg Q4H PRN PO PAIN LEVEL 8-10 Last administered on 03/23/18 06:18; Admin Dose 15 MG; Start 03/22/18 at 16:30 Acetaminophen (Tylenol Tab) 1,000 mg TID PO Last administered on 03/23/18 08:07; Admin Dose 1,000 MG; Start 03/22/18 at 21:00 Hydromorphone HCl (Dilaudid) 1 mg Q3H PRN IV BREAKTHROUGH PAIN Last administered on 03/23/18 03:35; Admin Dose 1 MG; Start 03/22/18 at 16:30 LISA CATES Mar 23, 2018 11:01
--- NOTE | 2018-03-23 12:28 | NUR ---
RN note: Villarreal removed without complications. Pt advised to call for assistance. Pt verbalized understanding.
--- NOTE | 2018-03-23 13:37 | PN ---
Date/Time of Note Date/Time of Note DATE: 03/23/18 TIME: 13:35 Assessment/Plan Lines/Catheters IV Catheter Type (from Nrsg): Saline Lock Villarreal in Place (from Nrsg): No Assessment/Plan Chief Complaint/Hosp Course This is a 62-year-old [id number] female with left proximal humerus fracture. Postop day #1 status post ORIF left proximal humerus fracture. Overall she is doing very well. Plan: Pain control Nonweightbearing left upper extremity Physical therapy and occupational therapy. Pendulums should be initiated for shoulder. Full range of motion of elbow wrist and hand. Otherwise patient should be in a sling Discharge planningpatient can be discharged from an orthopedic standpoint once home health and physical therapy has been arranged. Follow-up in clinic in 2 weeks. Subjective 24 Hr Interval Summary Patient doing well No acute events overnight Pain is well controlled Exam/Review of Systems Vital Signs Vitals Vital Signs Date Temp Pulse Resp B/P (MAP) Pulse Ox O2 O2 Flow FiO2 Time Delivery Rate 03/23/18 99.2 98 16 139/66 96 Room Air 11:39 (90) 03/22/18 3.0 14:00 Intake and Output 03/22/18 03/22/18 03/23/18 1515:00 23:00 07:00 IntakeIntake Total 2600 ml 470 ml 300 ml OutputOutput Total 400 ml 200 ml 650 ml BalanceBalance 2200 ml 270 ml -350 ml Exam Free Text/Dictation General: Awake, alert, in no acute distress, pleasant and cooperative Heart: regular rhythm Lungs: breathing comfortably, no tachypnea or dyspnea MUSCULOSKELETAL: Left upper extremity: Dressing is clean dry and intact Sensation intact to light touch in a median, ulnar, radial, and axillary distribution. Motor is intact in a median, ulnar, radial, anterior interosseous, and posterior interosseous nerve distribution. Radial and ulnar artery are +2. Wrist extension and flexion are intact. Compartments are soft. Results Result Diagram: 03/23/18 0510 03/23/18 0500 DEISY ELIZALDE MD Mar 23, 2018 13:37
--- NOTE | 2018-03-23 15:01 | NUR ---
Nutrition Notes: Received consult for pt. Hx of Type 2 DM and recent Hgb A1C 12.5. POC gluc > 200 mg/dL. Offered pt DM education, pt fairly receptive. Explained carbohydrate counting, but pt stated she could not see the handout I was trying to show as a visual aid. Pt reports her family comes in, so I let her know I will leave the educational handout for her family members to review. Pt was also stating some pain with swallowing her foods, but liquids are OK. Will trial Boost GC at all meals to augment PO intake. RD Recommendation 1. Boost GC TID 2. At f/u, will assess pt's education needs
--- NOTE | 2018-03-23 15:12 | CONS ---
Assessment/Plan Assessment/Plan Assessment/Plan (Daily) ORIF of left humeral fracture diabetes hypertension Hemodynamically stable Increased Nifedipine Continue Benazepril Continue Clonidine Continue Insulin Continue Trajenta Consultation Date/Type/Reason Admit Date/Time Mar 19, 2018 at 13:16 Initial Consult Date 03/19/18 Type of Consult Cardiology Requesting Provider: CON CHRISTIANSON MD Date/Time of Note DATE: 03/23/18 TIME: 15:09 Exam/Review of Systems Vital Signs Vitals Vital Signs Date Temp Pulse Resp B/P (MAP) Pulse Ox O2 O2 Flow FiO2 Time Delivery Rate 03/23/18 105 12:01 03/23/18 99.2 16 139/66 96 Room Air 11:39 (90) 03/22/18 3.0 14:00 Intake and Output 03/22/18 03/22/18 03/23/18 1515:00 23:00 07:00 IntakeIntake Total 2600 ml 470 ml 300 ml OutputOutput Total 400 ml 200 ml 650 ml BalanceBalance 2200 ml 270 ml -350 ml Exam Exam Constitutional: alert Head: normocephalic, atraumatic Neck: supple, non-tender Respiratory: clear to auscultation Cardiovascular: regular rate and rhythm (no m/r/g) Gastrointestinal: soft, nl liver, spleen Extremities: normal pulses Labs Result Diagram: 03/23/18 0510 03/23/18 0500 Results 24hrs Laboratory Tests Test 03/22/18 17:07 03/22/18 21:03 03/23/18 00:23 03/23/18 05:00 Bedside Glucose 291 H 299 H 291 H Sodium Level 139 Potassium Level 4.6 Chloride Level 103 Carbon Dioxide Level 26 Anion Gap 10 Blood Urea Nitrogen 16 Creatinine 0.57 Est Glomerular > 60 Filtrat Rate mL/min Glucose Level 254 H Calcium Level 8.8 Test 03/23/18 05:10 03/23/18 06:05 03/23/18 11:58 White Blood Count 13.5 #H Red Blood Count 3.47 #L Hemoglobin 9.1 #L Hematocrit 28.8 #L Mean Corpuscular 83.0 Volume Mean Corpuscular 26.2 L Hemoglobin Mean Corpuscular 31.6 L Hemoglobin Concent Red Cell 13.2 Distribution Width Platelet Count 268 Mean Platelet Volume 10.1 Immature 0.300 Granulocytes % Neutrophils % 78.9 H Lymphocytes % 10.9 L Monocytes % 9.6 Eosinophils % 0.1 Basophils % 0.2 Nucleated Red Blood 0.0 Cells % Immature 0.040 H Granulocytes # Neutrophils # 10.7 H Lymphocytes # 1.5 Monocytes # 1.3 H Eosinophils # 0.0 Basophils # 0.0 Nucleated Red Blood 0.0 Cells # Bedside Glucose 280 H 226 H Medications Medications Current Medications Hydralazine HCl (Apresoline) 20 mg Q6H PRN IV SBP above 160 Last administered on 03/22/18at 04:16; Admin Dose 20 MG; Start 03/19/18 at 16:30 Diagnostic Test (Pha) (Accu-Chek) 1 ea 02 XX ; Start 03/20/18 at 02:00 Insulin Aspart (Novolog Insulin Pen) NOVOLOG *MILD* ALGORI... Q6 SC Last administered on 03/23/18at 12:13; Admin Dose 3 UNIT; Start 03/19/18 at 18:00 Clonidine (Catapres) 0.1 mg Q6H PRN PO SBP>170 Last administered on 03/21/18at 15:37; Admin Dose 0.1 MG; Start 03/19/18 at 17:00 Benazepril HCl (Lotensin) 20 mg BID PO Last administered on 03/23/18at 08:08; Admin Dose 20 MG; Start 03/19/18 at 21:00 Insulin Detemir (Levemir) 10 units QHS SC Last administered on 03/22/18at 21:17; Admin Dose 10 UNITS; Start 03/20/18 at 21:00 Linagliptin (Tradjenta) 5 mg DAILY PO Last administered on 03/23/18at 08:09; Admin Dose 5 MG; Start 03/20/18 at 10:30 Miscellaneous Information 1 ea NOTE XX ; Start 03/20/18 at 10:30 Glucose (Glutose) 15 gm Q15M PRN PO DECREASED GLUCOSE; Start 03/20/18 at 10:30 Glucose (Glutose) 22.5 gm Q15M PRN PO DECREASED GLUCOSE; Start 03/20/18 at 10:30 Dextrose (D50w Syringe) 25 ml Q15M PRN IV DECREASED GLUCOSE; Start 03/20/18 at 10:30 Dextrose (D50w Syringe) 50 ml Q15M PRN IV DECREASED GLUCOSE; Start 03/20/18 at 10:30 Glucagon (Glucagen) 1 mg Q15M PRN IM DECREASED GLUCOSE; Start 03/20/18 at 10:30 Glucose (Glutose) 15 gm Q15M PRN BUCCAL DECREASED GLUCOSE; Start 03/20/18 at 10:30 Nifedipine (Procardia Xl) 30 mg DAILY PO Last administered on 03/23/18at 08:08; Admin Dose 30 MG; Start 03/21/18 at 09:00 Lubiprostone (Amitiza) 16 mcg BID PO Last administered on 03/23/18at 08:07; Admin Dose 16 MCG; Start 03/21/18 at 11:00 Clonidine (Catapres) 0.1 mg BID PO Last administered on 03/23/18at 08:08; Admin Dose 0.1 MG; Start 03/21/18 at 21:00 Pantoprazole (Protonix Tab) 40 mg DAILY@06 PO Last administered on 03/23/18at 06:01; Admin Dose 40 MG; Start 03/22/18 at 06:00 Heparin Sodium (Porcine) (Heparin (5000 Units/1ml)) 5,000 unit Q8 SC Last administered on 03/23/18at 13:21; Admin Dose 5,000 UNIT; Start 03/22/18 at 14:00 Ondansetron HCl (Zofran Inj) 4 mg Q6H PRN IV NAUSEA AND/OR VOMITING; Start 03/22/18 at 16:30 Oxycodone HCl (Roxicodone) 5 mg Q4H PRN PO PAIN LEVEL 1-3; Start 03/22/18 at 16:30 Oxycodone HCl (Roxicodone) 10 mg Q4H PRN PO PAIN LEVEL 4-7; Start 03/22/18 at 16:30 Oxycodone HCl (Roxicodone) 15 mg Q4H PRN PO PAIN LEVEL 8-10 Last administered on 03/23/18at 06:18; Admin Dose 15 MG; Start 03/22/18 at 16:30 Acetaminophen (Tylenol Tab) 1,000 mg TID PO Last administered on 03/23/18at 12:07; Admin Dose 1,000 MG; Start 03/22/18 at 21:00 Hydromorphone HCl (Dilaudid) 1 mg Q3H PRN IV BREAKTHROUGH PAIN Last administered on 03/23/18at 03:35; Admin Dose 1 MG; Start 03/22/18 at 16:30 AKSHAT ALONZO M.D. Mar 23, 2018 15:12
--- NOTE | 2018-03-23 16:47 | NUR ---
RN note: Pt with low appetite, conts to refuse meals. Pt denies nausea and dizziness. Pt educated and encourage to eat, pt educated about the importance of eating during recovery. This RN ordered fruits per patient request. aware.
--- NOTE | 2018-03-23 18:34 | NUR ---
EOSS Pt AO x 4, vital signs within ranges, SR on the monitor, no signs of acute distress during shift, complains of pain, PRN meds given accordingly. Pt with poor appetite, MD aware. Pt advised to call RN for assistance. Pt verbalized understanding. Will endorse.
[2018-03-23] MEDS: INSULIN DETEMIR [LEVEMIR] (100 UNITS/ML) SYG SC SCH (20:26)
[2018-03-24] VITALS (8 sets, daily range): BP systolic 125–158; BP diastolic 59–87; PULSE 95–124; RESP 16–18
[2018-03-24] MEDS: ACCU-CHEK XX SCH (01:41)
[2018-03-24] MEDS: oxyCODONE 15 MG TAB PO PRN (02:33)
[2018-03-24] MEDS: PANTOPRAZOLE (EC) 40 MG TAB PO SCH (05:14)
[2018-03-24] MEDS: HEPARIN 5,000 UNIT/1 ML VIAL SC SCH ×2 (05:16→13:58)
[2018-03-24] MEDS: INSULIN ASPART [NOVOLOG] 3 ML PEN SC SCH ×2 (05:23→12:22)
[2018-03-24] MEDS: HYDROmorphONE 1 MG/ML SYG IV PRN ×2 (05:24→11:30)
--- NOTE | 2018-03-24 08:55 | NUR ---
PT NOTE Therapy day number 2 Subjective Current complaint of pain Pain Scale NUMERIC Pain Intensity 0 (0-10) Patient Stated Goal for Pain Relief 7 (0-10) Pain Level Comment L shoulder Transfer Training Start Time 08:55 Supine to Sit Minimum Assist Transfer Sit to Stand Ability Contact Guard Assist Bed Mobility Sit to Supine Minimum Assist Additional Mobility Comments with no AD Transfer Training End Time 09:10 Total Transfer Training Time 15 min (8-127) Gait Training Start Time 09:10 Gait Assist Levels Stand by Assist Assistive Devices None Ambulation Distance 80 feet Additional Gait Comments reciprocal gait, WBOS, slight waddling gait, no LOB/buckling Gait Training End Time 09:25 Total Gait Training Treatment Time 15 min (8-127) Weight Bearing Assessment Label Left Upper Extremity Weight Bearing Status Non Weight Bearing Additional Weight Bearing Comments sling while OOB Static Sitting Balance Fair plus Dynamic Sitting Balance Fair Standing Static Balance Fair Dynamic Standing Balance Fair Safety Judgement Fair Activity Tolerance Fair Equipment Present A pump Additional Equipment Present sling Post Treatment Pain Intensity 7 0-10 Variance Documentation SEE BELOW AND PT NOTE Total Treament Time 30 min (8-127) Total Minutes 30 Total Units 2 PT Technical Record Comment PT NOTE S: Pt stated,"My arm and right butt cheek hurts." Agreeable for PT and cleared per RN Deepika. O: Received pt in semi-fowlers, alert w/LUE sling donned already. Bed mobility w/HOB elevated using BR Lennie/CGA. Applied gait belt at EOB. STS w/no AD using BR CGA/SBA. Gait training performed w/no AD 80' SBA. Noted reciprocal gait, WBOS, slight waddling gait, and no LOB/buckling. Assisted pt back to room BTB. Positioned pt for comfort, call light/phone within reach, bed alarmed, and all needs met. RN Fe informed of pt's status and approached pt's room post tx. Pt was left attended w/RN. A: Fair tolerance to tx. Pt showed no signs of distress or SOB during or after tx. No c/o dizziness or nausea throughout tx. Bed mobility, transfers, and gait assistance/distance improved compared to previous tx. Pt is clear to go to restroom w/nursing staff using gait belt and LUE when OOB. P: Continue POC and progress as tolerated.
[2018-03-24] MEDS: LUBIPROSTONE 8 MCG CAPSULE PO SCH (09:00)
[2018-03-24] MEDS ORDERED: NIFEdipine (XL) 60 MG TAB PO SCH (09:00)
[2018-03-24] MEDS: LINAGLIPTIN 5 MG TABLET PO SCH (09:18)
[2018-03-24] MEDS: BENAZEPRIL 20 MG TAB PO SCH (09:18)
[2018-03-24] MEDS: ACETAMINOPHEN 500 MG TAB PO SCH ×2 (09:19→13:51)
--- NOTE | 2018-03-24 10:54 | CONS ---
Assessment/Plan Assessment/Plan Hospital Course (Demo Recall) IMPRESSION: 1. Preoperative evaluation prior to upper extremity surgery for comminuted humeral fracture.-neg trop x 3/NL EF by echo and no sig valve abnl. BP overall improved. OK to proceed to OR at overall moderate CV risk on current medications without further noninvasive evaluation. Now post-op s/p UE surgery 2. Status post fall, rule out cardiac etiology, rule out cardiac arrhythmia. Per patient she states she tripped and fell. 3. Hypertension, uncontrolled. 4. Dyslipidemia. 5. Diabetes mellitus. 6. Leukocytosis. 7. Uncontrolled blood sugars. Recc: -Tele -serial ecg's -Continue benazepril/procardia/clonidine with reasonable BP control -venous UVALDO to rule out DVT as possible -Pain control Consultation Date/Type/Reason Admit Date/Time Mar 19, 2018 at 13:16 Initial Consult Date 03/19/18 Type of Consult Cardiology Reason for Consultation Preop/HTN Requesting Provider: CON CHRISTIANSON MD Date/Time of Note DATE: 03/24/18 TIME: 10:51 Exam/Review of Systems Vital Signs Vitals Vital Signs Date Temp Pulse Resp B/P (MAP) Pulse Ox O2 O2 Flow FiO2 Time Delivery Rate 03/24/18 98 08:01 03/24/18 99.9 18 133/60 94 Room Air 07:51 (84) 03/22/18 3.0 14:00 Intake and Output 03/23/18 03/23/18 03/24/18 1515:00 23:00 07:00 IntakeIntake Total 1080 ml 250 ml OutputOutput Total 450 ml 400 ml BalanceBalance 630 ml -150 ml Exam Exam Review of Systems: CONSTITUTIONAL: No fevers, chills. PULMONARY: No sob CARDIOVASCULAR: No chest pain/palpitations GASTROINTESTINAL: No nausea/vomiting. GENITOURINARY: No hematuria/dysuria. MUSCULOSKELETAL: No myagias/arthalgias. PSYCHIATRIC: The patient denies depression. NEUROLOGIC: No weakness Constitutional: alert Psych: no complaints Head: normocephalic ENMT: mucosa pink and moist Neck: supple, jvd (9 cm water) Respiratory: diminished breath sounds (at bases/B) Cardiovascular: regular rate and rhythm Gastrointestinal: soft, non-tender Musculoskeletal: muscle tone (normal) Extremities: other (swelling LUE) Neurological: other (No focal deficits) Labs Result Diagram: 03/24/18 0455 03/24/18 0455 Results 24hrs Laboratory Tests Test 03/23/18 11:58 03/23/18 17:33 03/23/18 20:13 03/23/18 23:48 Bedside Glucose 226 H 229 H 241 H 241 H Test 03/24/18 01:19 03/24/18 04:55 03/24/18 05:12 03/24/18 08:06 Bedside Glucose 216 165 159 White Blood Count 12.6 H Red Blood Count 3.13 L Hemoglobin 8.2 L Hematocrit 26.0 L Mean Corpuscular 83.1 Volume Mean Corpuscular 26.2 L Hemoglobin Mean Corpuscular 31.5 L Hemoglobin Concent Red Cell 13.2 Distribution Width Platelet Count 268 Mean Platelet Volume 10.6 H Immature 0.500 H Granulocytes % Neutrophils % 72.7 Lymphocytes % 16.9 Monocytes % 9.2 Eosinophils % 0.4 Basophils % 0.3 Nucleated Red Blood 0.0 Cells % Immature 0.060 H Granulocytes # Neutrophils # 9.2 H Lymphocytes # 2.1 Monocytes # 1.2 H Eosinophils # 0.1 Basophils # 0.0 Nucleated Red Blood 0.0 Cells # Sodium Level 139 Potassium Level 4.4 Chloride Level 100 Carbon Dioxide Level 30 Anion Gap 9 Blood Urea Nitrogen 11 Creatinine 0.61 Est Glomerular > 60 Filtrat Rate mL/min Glucose Level 175 Calcium Level 8.5 Medications Medications Current Medications Hydralazine HCl (Apresoline) 20 mg Q6H PRN IV SBP above 160 Last administered on 03/22/18at 04:16; Admin Dose 20 MG; Start 03/19/18 at 16:30 Diagnostic Test (Pha) (Accu-Chek) 1 ea 02 XX Last administered on 03/24/18at 01:41; Admin Dose 1 EA; Start 03/20/18 at 02:00 Insulin Aspart (Novolog Insulin Pen) NOVOLOG *MILD* ALGORI... Q6 SC Last administered on 03/24/18at 05:23; Admin Dose 1 UNIT; Start 03/19/18 at 18:00 Clonidine (Catapres) 0.1 mg Q6H PRN PO SBP>170 Last administered on 03/21/18at 15:37; Admin Dose 0.1 MG; Start 03/19/18 at 17:00 Benazepril HCl (Lotensin) 20 mg BID PO Last administered on 03/24/18at 09:18; Admin Dose 20 MG; Start 03/19/18 at 21:00 Insulin Detemir (Levemir) 10 units QHS SC Last administered on 03/23/18at 20:26; Admin Dose 10 UNITS; Start 03/20/18 at 21:00 Linagliptin (Tradjenta) 5 mg DAILY PO Last administered on 03/24/18at 09:18; Admin Dose 5 MG; Start 03/20/18 at 10:30 Miscellaneous Information 1 ea NOTE XX ; Start 03/20/18 at 10:30 Glucose (Glutose) 15 gm Q15M PRN PO DECREASED GLUCOSE; Start 03/20/18 at 10:30 Glucose (Glutose) 22.5 gm Q15M PRN PO DECREASED GLUCOSE; Start 03/20/18 at 10:30 Dextrose (D50w Syringe) 25 ml Q15M PRN IV DECREASED GLUCOSE; Start 03/20/18 at 10:30 Dextrose (D50w Syringe) 50 ml Q15M PRN IV DECREASED GLUCOSE; Start 03/20/18 at 10:30 Glucagon (Glucagen) 1 mg Q15M PRN IM DECREASED GLUCOSE; Start 03/20/18 at 10:30 Glucose (Glutose) 15 gm Q15M PRN BUCCAL DECREASED GLUCOSE; Start 03/20/18 at 10:30 Lubiprostone (Amitiza) 16 mcg BID PO Last administered on 03/23/18at 20:10; Admin Dose 16 MCG; Start 03/21/18 at 11:00 Clonidine (Catapres) 0.1 mg BID PO Last administered on 03/24/18at 09:18; Admin Dose 0.1 MG; Start 03/21/18 at 21:00 Pantoprazole (Protonix Tab) 40 mg DAILY@06 PO Last administered on 03/24/18at 05:14; Admin Dose 40 MG; Start 03/22/18 at 06:00 Heparin Sodium (Porcine) (Heparin (5000 Units/1ml)) 5,000 unit Q8 SC Last administered on 03/24/18at 05:16; Admin Dose 5,000 UNIT; Start 03/22/18 at 14:00 Ondansetron HCl (Zofran Inj) 4 mg Q6H PRN IV NAUSEA AND/OR VOMITING; Start 03/22/18 at 16:30 Oxycodone HCl (Roxicodone) 5 mg Q4H PRN PO PAIN LEVEL 1-3; Start 03/22/18 at 16:30 Oxycodone HCl (Roxicodone) 10 mg Q4H PRN PO PAIN LEVEL 4-7; Start 03/22/18 at 16:30 Oxycodone HCl (Roxicodone) 15 mg Q4H PRN PO PAIN LEVEL 8-10 Last administered on 03/24/18at 02:33; Admin Dose 15 MG; Start 03/22/18 at 16:30 Acetaminophen (Tylenol Tab) 1,000 mg TID PO Last administered on 03/24/18at 09:19; Admin Dose 1,000 MG; Start 03/22/18 at 21:00 Hydromorphone HCl (Dilaudid) 1 mg Q3H PRN IV BREAKTHROUGH PAIN Last administered on 03/24/18at 05:24; Admin Dose 1 MG; Start 03/22/18 at 16:30 Nifedipine (Procardia Xl) 60 mg DAILY PO Last administered on 03/24/18at 09:17; Admin Dose 60 MG; Start 03/24/18 at 09:00 ALTON DYE Mar 24, 2018 10:54
--- NOTE | 2018-03-24 12:03 | PDOCDIS ---
Discharge Instructions DIAGNOSIS Discharge Diagnosis s/p ORIF right humerus CONDITION [id number] Patient Condition: [id number] Stable ACTIVITY: [id number] Activity Restrictions: [id number] Slowly Increase Activity Rest between Activity Avoid heavy lifting Do not Drive Avoid Heavy Housework [id number] Activity Restrictions [id number] non weigt bearing left arm, Comment: keep in sling all the time FOLLOW UP/APPOINTMENTS Follow-up Plan Dr Saxena office 2 weeks SCHOOL/WORK RELEASE May return to School/Work with: No Restrictions LISA CATES Mar 24, 2018 12:03
--- NOTE | 2018-03-24 12:08 | DS ---
Date/Time of Note Date/Time of Note DATE: 03/24/18 TIME: 12:07 Discharge Summary Admission/Discharge Info Admit Date/Time Mar 19, 2018 at 13:16 Discharge Date/Time Discharge Diagnosis s/p ORIF right humerus Patient Condition: Stable Consults Dr Saxena, orthopedic surgeon, dr Mccallum, cardiology Procedures ORIF left humerus Hx of Present Illness Patient is a 62-year-old female with past medical history of hypertension, hyperlipidemia, Type DM II, diverticulosis presents to the ER for concerns of left arm pain times 1 day. Patient states she tripped yesterday at home near her fireplace twice. Patient denies any dizziness or lightheadedness prior to fall injury. Patient reports falling onto her left shoulder.. Patient denies any headache or head injuries. Patient denies any chest pain or shortness of breath. Pt states that she takes Tylenol with codeine BID, doses are unclear. she is under pain management for chronic back pain and bilateral osteoarthritis. Patient has normal range of motion of all digits. Patient is left-hand dominant. Patient denies any fractures or dislocations in the past. Hospital Course Patient is a 62-year-old female with past medical history of hypertension, hyperlipidemia, Type DM II, diverticulosis presents to the ER for concerns of left arm pain times 1 day. Patient states she tripped yesterday at home near her fireplace twice. Patient denies any dizziness or lightheadedness prior to fall injury. Patient reports falling onto her left shoulder.. Patient denies any headache or head injuries. Patient denies any chest pain or shortness of breath. Pt states that she takes Tylenol with codeine BID, doses are unclear. she is under pain management for chronic back pain and bilateral osteoarthritis. Patient has normal range of motion of all digits. Patient is left-hand dominant. Patient denies any fractures or dislocations in the past. 1. Left arm dislocation with surgical neck humerus fracture. S/P ORIF with repair of greater tuberosity. SIRS, wbc 12 2. S/p two ground falls 3. Hypertension 4. Hyperlipidemia, 5. Type DM II 6. hx of diverticulosis 7. Obesity 8. chronic back pain and osteoarthritis both knees, pt is taking Tylenol # 4 BID for more than a month. Pt has opiates intake history. [place] make her sick, she prefers Vicodin 7.5 9. Ventral hernia During hospitalization pt. was on telemetry service, she had been consulted by dr Mccallum , cardiology who conclude her clearance for surgery. She was on telemetry service, her BP was controlled and she was seen by Dr Saxena, orthopedic surgeon prior and after surgery. ORIF left humerus was performed 03/23/2018. Pt had controlled pain and was d/c home with PT and OT service Home Meds Reported Medications Simvastatin (Simvastatin) 10 Mg Tablet, 10 MG PO DAILY, #30 TAB 03/19/18 Clonidine Hcl* (Clonidine Hcl*) 0.1 Mg Tab, 0.1 MG PO BID, TAB 03/19/18 Nifedipine* (Nifedipine ER*) 60 Mg Tablet.sa, 60 MG PO DAILY, TAB.SA 03/19/18 Loratadine* (Loratadine*) 10 Mg Tablet, 10 MG PO DAILY, #30 TAB 03/19/18 Aspirin* (Aspirin* EC) 81 Mg Tablet.dr, 81 MG PO DAILY, TAB 03/19/18 Insulin Glargine,Hum.rec.anlog (Ambrosioagllazaro Kwikpen U-100) 100 Unit/1 Ml Insuln.pen, 15 UNIT SC QAM, EA 03/19/18 Metformin* (Glucophage*) 1,000 Mg Tablet, 500 MG PO DAILY, #60 TAB 03/19/18 Benazepril Hcl* (Benazepril Hcl*) 20 Mg Tablet, 20 MG PO DAILY, TAB 11/06/13 Discontinued Reported Medications [Regular Insulin] No Conflict Check, SC AC MEALS 11/06/13 Metformin* (Glucophage*) 1,000 Mg Tablet, 1000 MG PO BID, TAB 11/06/13 Ibuprofen* (Ibuprofen*) 200 Mg Capsule, 600 MG PO BID PRN for PAIN, CAP 11/06/13 Follow-up Plan Dr Saxena office 2 weeks Primary Care Provider Analy Alvarenga MD Time spent on discharge: < 30 minutes Pending Labs Laboratory Tests Test 03/23/18 17:33 03/23/18 20:13 03/23/18 23:48 03/24/18 01:19 Bedside 229 241 241 216 Glucose mg/dL (70-220) mg/dL (70-220) mg/dL (70-220) mg/dL (70-220) Test 03/24/18 04:55 03/24/18 05:12 03/24/18 08:06 03/24/18 11:35 White Blood 12.6 Count 10^3/ul (4.8-10 .8) Red Blood 3.13 Count 10^6/ul (4.20-5 .40) Hemoglobin 8.2 g/dl (12.0-16.0 ) Hematocrit 26.0 % (37.0-47.0) Mean 83.1 Corpuscular fl (82.0-101.0) Volume Mean 26.2 Corpuscular pg (29.0-33.0) Hemoglobin Mean 31.5 Corpuscular g/dl (32.0-37.0 Hemoglobin Conc ) ent Red Cell 13.2 Distribution % (11.5-14.5) Width Platelet Count 268 10^3/UL (140-41 5) Mean Platelet 10.6 Volume fl (7.4-10.4) Immature 0.500 Granulocytes % % (0.001-0.429) Neutrophils % 72.7 % (39.0-77.0) Lymphocytes % 16.9 % (15.0-51.0) Monocytes % 9.2 % (0.0-11.0) Eosinophils % 0.4 % (0.0-7.0) Basophils % 0.3 % (0.0-2.0) Nucleated Red 0.0 Blood Cells % /100WBC (0.0-0. 0) Immature 0.060 Granulocytes # 10^3/ul (0.0-0. 031) Neutrophils # 9.2 10^3/ul (1.6-7. 5) Lymphocytes # 2.1 10^3/ul (0.8-2. 9) Monocytes # 1.2 10^3/ul (0.3-0. 9) Eosinophils # 0.1 10^3/ul (0.0-0. 5) Basophils # 0.0 10^3/ul (0.0-0. 1) Nucleated Red 0.0 Blood Cells # 10^3/ul (0.0-0. 0) Sodium Level 139 mmol/L (135-144 ) Potassium 4.4 Level mmol/L (3.5-5.1 ) Chloride Level 100 mmol/L (97-110) Carbon Dioxide 30 Level mmol/L (21-31) Anion Gap 9 (5-13) Blood Urea 11 mg/dl (7-20) Nitrogen Creatinine 0.61 mg/dl (0.44-1.0 0) Est Glomerular > 60 Filtrat mL/min (>60) Rate mL/min Glucose Level 175 mg/dl (70-220) Calcium Level 8.5 mg/dl (8.4-10.2 ) Bedside 165 159 211 Glucose mg/dL (70-220) mg/dL (70-220) mg/dL (70-220) LISA CATES Mar 24, 2018 12:08
--- NOTE | 2018-03-24 12:09 | NUR ---
CM UPDATE NOTES: Referred to several [id number] awaiting for case acceptance but plan is for dc home today w/ HH. Georgina AGENT TICKETING GATE to speak with family regarding care plan. Will followup on HH status as needed. Jaydon PAYNE [phone]
--- NOTE | 2018-03-24 15:23 | NUR ---
daughter here to merchandise pickup/receiving associate patient for discharge home, unit educator at bedside, she has recommendations before pt gets discharge, call plced to dr montes and message left.
--- NOTE | 2018-03-24 16:00 | NUR ---
Diabetes Education Referral: Thank you for the referral. R: Consider adding Januvia 100 mg daily to pt's home regimen. Pt will also require an RX for glucometer. HbA1c 12.5%; 101kg; BMI 36; Cr 0.61; Admitting serum glucose 374 mg/dl Pt stated she had had T2DM over 10 years but not sure if its been over 20 years. Pt stated that prior to this admission she was taking Basaglar 15 units daily and Metformin 500 mg BID. 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 Pt stated she was scared to take a lot of insulin. Reviewed pt's glucose on admission and her HbA1c. Pt currently receiving Levemir 10 units and Linagliptin 5 mg daily with adequate control. With the use of handouts discussed at length with patient and daughter at bedside how diabetes works in the body, where the glucose comes from, how food breaks down into glucose, and how different medications (Basaglar, Metformin, and Januvia) work. Reviewed glucose targets (pre and post meal), reviewed the different food groups and when/how to manage glucose by adjusting the carbohydrates and proteins. Discussed how different factors cause extra glucose released from the liver. Discussed how an increase in activity can assist in lowering glucose levels. Discussed timing of the insulins, locations of administration, to rotate the administration site, proper storage of the insulin, and to never inject insulin cold. All questions answered. Resources provided for future follow up.
--- NOTE | 2018-03-24 17:20 | NUR ---
discharge notes: daughter at beside carolina gutierrez instruction was provided, verbalized understanding, discharge packet given to pt as well as the prescriptions, patient left by wheel chair to her private vehicle, in stable condition, heplock was removed, coco Short requested to leave her phone number ([phone]) to the Home health agency, message left with the voicemail regarding pt request.
--- NOTE | 2018-03-25 14:44 | NUR ---
CM DISCHARGE NOTES: S/w Mariely from [facility] [phone] and will accept pt for service. Gracie PAYNE from [address] referred this CM to use [facility] as contracted DIE LAY OUT WORKER. Michael pt's dtr Deja [phone] and made aware of arrangement and also gave Deja DIE LAY OUT WORKER contact info. Jaydon PAYNE [phone]
== END 2018-03-24 17:05 | disposition home health service (06) | DRG 494 ==
LOC: FTE 08:39 → MS1 13:16 → 6WM 19:10
PROVIDERS: ADMIT Internal Medicine; ATTEND Internal Medicine
PROC: 0PHD04Z Insertion of Internal Fixation Device into Left Humeral Head, Open Approach (ICD-10-PCS; 2018-03-22)
PROC: 0PSG04Z Reposition Left Humeral Shaft with Internal Fixation Device, Open Approach (ICD-10-PCS; principal; 2018-03-22 07:30)
DX: S42.222A 2-part displaced fracture of surgical neck of left humerus, initial encounter for closed fracture (principal); S42.255A Nondisplaced fracture of greater tuberosity of left humerus, initial encounter for closed fracture; E66.9 Obesity, unspecified; I10 Essential (primary) hypertension; E11.65 Type 2 diabetes mellitus with hyperglycemia; M17.0 Bilateral primary osteoarthritis of knee; W01.0XXA Fall on same level from slipping, tripping and stumbling without subsequent striking against object, initial encounter; Y92.018 Other place in single-family (private) house as the place of occurrence of the external cause; K43.9 Ventral hernia without obstruction or gangrene; Z68.35 Body mass index [BMI] 35.0-35.9, adult
CPT/HCPCS: 36415; 71045; 73030; 73060; 73200; 80048; 80061; 81001; 82962; 83036; 84484; 85025; 85610; 85730; 90686; 93005; 93306; 93971; 96361; 96374; 96375; 97116; 97162; 97530; C1713; C9113; J0360; J0690; J1170; J1644; J1815; J2175; J2250; J2270; J2405; J2710; J2765; J3010; J7030; J7042